=== PATIENT | female | born 1965 | race Caucasian/White ===

== ENCOUNTER 2020-08-18 08:28 | Emergency (ER) | payer OTHER, SELFPAY ==
[2020-08-18 08:45] VITALS: BP 119/57; PULSE 72; RESP 20; TEMP 36.4; O2SAT 100
--- NOTE | 2020-08-18 09:30 | ED.EYEPROB ---
HPI - Eye Problem General Chief complaint: Eye Problems Stated complaint: fb in left eye Time Seen by Provider: 08/18/20 09:32 Source: patient and RN notes reviewed Mode of arrival: ambulatory Limitations: no limitations History of Present Illness HPI Narrative: 54-year-old female who presents to [facility] care with complaints of foreign body sensation to her left eye which she noted yesterday evening after painting her ceiling. Patient states that she washed her left eye out with water but continues to have feelings of foreign body in her left eye. Visual acuity performed with right eye 20/40, left eye 20/50 with no corrective lenses worn. Patient states no sharp pain to her left eye, denies any photophobia, does have excessive tearing. No contact lens use. MD chief complaint: eye pain Onset description: sudden Duration: progressively worsening Location: left eye Eye Symptoms: burning and foreign body sensation Place: home Mechanism: chemical exposure and other (painting ceiling) Treatments Prior to Arrival: irrigated eye Related Data Home Medications Medication Instructions Recorded Confirmed albuterol sulfate [Ventolin HFA] 2 puff INHALATION QID PRN 08/18/20 08/18/20 dicyclomine 10 mg PO TID 08/18/20 08/18/20 escitalopram oxalate 10 mg PO DAILY 08/18/20 08/18/20 hydrocodone-acetaminophen 1 tablet PO Q6H PRN 08/18/20 08/18/20 Allergies Allergy/AdvReac Type Severity Reaction Status Date / Time cat dander Allergy Intermediate SOB, NASAL Verified 08/18/20 09:40 CONGESTION, SNEEZING horse dander Allergy Intermediate SOB, NASAL Verified 08/18/20 09:40 CONGESTION, SNEEZING Review of Systems Review of Systems: Narrative: CONSTITUTIONAL: Denies fever, chills, or sweats. EYES: Denies visual changes, redness, or discharge. excessive tearing to left eye with foreign body sensation, no acute sharp pain. ENT: Denies rhinorrhea, congestion, sore throat, or otalgia. CARDIOVASCULAR: Denies chest pain, palpitations, or edema. RESPIRATORY: Denies cough or dyspnea. GASTROINTESTINAL: Denies abdominal pain, nausea, vomiting, or diarrhea. GENITOURINARY: Denies dysuria or hematuria. SKIN: Denies rash or itching. MUSCULOSKELETAL: Denies back pain, joint pain, or myalgia. NEUROLOGIC: Denies headache, numbness, or weakness. PSYCHIATRIC: Denies anxiety or depression. All systems reviewed & are unremarkable except as noted in HPI and below PMFSH Past Medical History Medical History (Updated 08/18/20 @ 10:41 by Helena Roland NP) Allergy-induced asthma Shukla's esophagus Chronic back pain Surgical History Surgical History (Updated 08/18/20 @ 10:45 by Helena Roland NP) H/O shoulder surgery left History of carpal tunnel release right History of endometrial ablation History of fusion of cervical spine History of thumb surgery left History of tubal ligation History of weight loss surgery gastric sleve Hx of cholecystectomy Hx of tonsillectomy Social History Social History (Updated 08/18/20 @ 10:38 by Helena Roland NP) Smoking packs per day: 1 Smoking cigarettes per day: 20.0 Years smoked: 40 Smoking pack-years: 40.00 Smoking status: Current every day smoker Tobacco type: cigarettes Alcohol intake: unknown Substance use: unknown Living arrangements: with family Gender identity (if verbalized by the patient): Female Comments At time of signature, agree with nursing past medical, surgical, social history. There is no relevant family history pertinent to the presenting complaint Exam Narrative: Exam Narrative: GENERAL: Well-appearing, well-nourished, and in no acute distress. HEAD: Normocephalic, atraumatic. EYES: PERRLA and EOMI. visual acuity right 20/40 left 20/50 no sharp pain to left eye, foreign body sensation to left eye with tearing, see eye exam procedure. ENT: Nares clear, no rhinorrhea or epistaxis. Mucous membranes moist. NECK: Supple. no lymphadenopathy ANASTACIO
== END 2020-08-18 10:00 | disposition home or self-care (01) ==
PROVIDERS: Emergency Provider Registered Nurse
DX: S05.02XA Injury of conjunctiva and corneal abrasion without foreign body, left eye, initial encounter (principal); X58.XXXA Exposure to other specified factors, initial encounter; F17.210 Nicotine dependence, cigarettes, uncomplicated; K22.70 Barrett's esophagus without dysplasia; J45.909 Unspecified asthma, uncomplicated; Z98.84 Bariatric surgery status
CPT/HCPCS: 99213; A9270; G0463

== ENCOUNTER 2020-09-04 17:09 | Emergency (ER) | payer OTHER, SELFPAY ==
--- NOTE | ~2020-09-04 | XR_ITS ---
EXAMINATION: XR finger 3rd RT min 2V DATE: 09/04/2020 18:00 INDICATION: Right hand third digit injury. TECHNIQUE: 3 views of right hand third digit were obtained. COMPARISON: None. FINDINGS: Bone alignment is normal. There is mild osteoarthritis of first carpometacarpal joint. Ther e is a small calcification at radial aspect of third distal interphalangeal joint. There is soft tiss ue swelling of third proximal interphalangeal joint. IMPRESSION: 1. Small calcification at radial aspect of third distal interphalangeal joint, which may be a chip av ulsion fracture or a chronic finding. Reviewed, dictated and finalized at location A. ER HELPER IMPRESSION: 1. Small calcification at radial aspect of third distal interphalangeal joint, which may be a chip avulsion fracture or a chronic finding.
[2020-09-04 17:18] VITALS: BP 128/63; PULSE 79; RESP 14; TEMP 37.1; O2SAT 99
--- NOTE | 2020-09-04 17:39 | ED.GENADULT ---
HPI - General Adult General Chief complaint: Extremity Injury, Upper Stated complaint: right middle finger swollen/painful Time Seen by Provider: 09/04/20 17:39 Source: patient and RN notes reviewed Mode of arrival: ambulatory Limitations: no limitations History of Present Illness HPI narrative: 54-year-old female presents with complaints of RT 3rd (middle) finger pain for the past 6-8 weeks. Tonie says pain initially from unknown injury, today while cleaning jammed finger against the floor. Symptoms increased throughout the day. [place] with relief. Denies numbness or tingling. No weakness of finger. Denies immobility. Exacerbation is movement and palpation of finger. Relieving factor is rest. Dominant hand is RIGHT HAND. Denies break in skin or drainage. The patient reports she have not been diagnosed with COVID-19. The patient reports she is not waiting for the results of a COVID-19 lab test. The patient reports she do not have fever, chills, weakness, or fatigue. The patient reports she do not have a new or worsening cough or shortness of breath. Denies chest pain. The patient reports she do not have any rhinorrhea, congestion, sore throat, loss of taste, nausea, vomiting, abdominal pain, and diarrhea. Tolerating po intake well. Denies recent traveling. Denies concerns for COVID-19 or exposures been home with limited outdoor exposure except for essential household needs, work, and return home. At this time, patient is not suspected of having COVID-19. Some parts of this dictation were generated by voice recognition software and may contain typographical and/or grammatical inaccuracies. Related Data Home Medications Medication Instructions Recorded Confirmed albuterol sulfate [Ventolin HFA] 2 puff INHALATION QID PRN 08/18/20 09/04/20 escitalopram oxalate 10 mg PO DAILY 08/18/20 09/04/20 hydrocodone-acetaminophen 1 tablet PO Q6H PRN 08/18/20 09/04/20 omeprazole 40 mg PO DAILY 09/04/20 09/04/20 Allergies Allergy/AdvReac Type Severity Reaction Status Date / Time cat dander Allergy Intermediate SOB, NASAL Verified 09/04/20 17:32 CONGESTION, SNEEZING horse dander Allergy Intermediate SOB, NASAL Verified 09/04/20 17:32 CONGESTION, SNEEZING Review of Systems Review of Systems: Narrative: CONSTITUTIONAL: Denies fever, chills, sweats. EYES: Denies visual changes, redness, discharge. ENT: Denies rhinorrhea, congestion, sore throat, otalgia. CARDIOVASCULAR: Denies chest pain, palpitations, edema. RESPIRATORY: Denies dyspnea, wheezing, cough. GASTROINTESTINAL: Denies abdominal pain, nausea, vomiting, diarrhea. SKIN: Denies rash or itching. MUSCULOSKELETAL: Denies acute back pain or myalgia. Complains of RT 3rd (middle) finger with tenderness. NEUROLOGIC: Denies numbness or focal weakness. PSYCHIATRIC: Denies anxiety or depression. All systems reviewed & are unremarkable except as noted in HPI and below PMFSH Past Medical History Medical History Allergy-induced asthma Shukla's esophagus Chronic back pain Surgical History Surgical History H/O shoulder surgery left History of carpal tunnel release right History of endometrial ablation History of fusion of cervical spine History of thumb surgery left History of tubal ligation History of weight loss surgery gastric sleve Hx of cholecystectomy Hx of tonsillectomy Family History Family History (Updated 09/04/20 @ 18:00 by JOSEE Regalado) Father Acute myocardial infarction Mother Cerebrovascular accident Social History Social History (Updated 09/04/20 @ 18:01 by JOSEE Regalado) Smoking packs per day: 1 Smoking cigarettes per day: 20.0 Years smoked: 40 Smoking pack-years: 40.00 Smoking status: Current every day smoker Tobacco type: cigarettes Second
== END 2020-09-04 18:41 | disposition home or self-care (01) ==
PROVIDERS: Emergency Provider Nurse Practitioner Family
DX: S63.612A Unspecified sprain of right middle finger, initial encounter (principal); W22.8XXA Striking against or struck by other objects, initial encounter; F17.210 Nicotine dependence, cigarettes, uncomplicated; Z98.84 Bariatric surgery status; J45.990 Exercise induced bronchospasm; K22.70 Barrett's esophagus without dysplasia
CPT/HCPCS: 29130; 73140; 99213; G0463

== ENCOUNTER 2021-03-24 16:54 | Emergency (ER) | payer OTHER, SELFPAY ==
--- NOTE | ~2021-03-24 | XR_ITS ---
XR foot LT min 3V 03/24/2021 17:24 Indication: Left foot pain Procedure: 4 views left foot Comparison: No prior studies for comparison. Findings: Mild-moderate osteoarthritis first MTP joint. Lisfranc joint intact. No significant soft ti ssue abnormality. No foreign bodies. Small degenerative calcaneal enthesophytes. Impression: 1: No acute fracture. Reviewed, dictated and finalized at location A. Impression: 1: No acute fracture.
[2021-03-24 17:04] VITALS: BP 130/66; PULSE 74; RESP 16; TEMP 36.8; O2SAT 97
[2021-03-24 17:11] VITALS: BP 130/66; PULSE 74; RESP 16; TEMP 36.8; O2SAT 97
--- NOTE | 2021-03-24 17:43 | ED.LOWEXIN ---
HPI - Extremity Injury (Lower) General Chief Complaint: Extremity Injury, Lower Stated Complaint: Foot complaint Time Seen by Provider: 03/24/21 17:24 Source: patient and RN notes reviewed Mode of arrival: ambulatory Limitations: no limitations History of Present Illness HPI Narrative: Patient presents today complaining of left lateral foot pain x2 to 3 weeks. States she experienced pain when she stepped down from her camper. States pain continues to worsen and has been constant. She does report some tingling in her foot, but denies numbness. Currently rates her pain 6?9/10. Patient takes [place] chronically for her chronic back pain, but cannot take NSAIDs due to previous weight loss surgery. MD complaint: foot injury Related Data Home Medications Medication Instructions Recorded Confirmed escitalopram oxalate 10 mg PO DAILY 08/18/20 03/24/21 omeprazole 40 mg PO DAILY 09/04/20 03/24/21 hydrocodone-acetaminophen 1 tablet PO QID PRN 03/24/21 03/24/21 pantoprazole 40 mg PO DAILY 03/24/21 03/24/21 Allergies Allergy/AdvReac Type Severity Reaction Status Date / Time cat dander Allergy Intermediate SOB, NASAL Verified 03/24/21 17:09 CONGESTION, SNEEZING horse dander Allergy Intermediate SOB, NASAL Verified 03/24/21 17:09 CONGESTION, SNEEZING Review of Systems Review of Systems: Narrative: CONSTITUTIONAL: Denies body aches, fever, chills, or sweats. EYES: Denies visual changes, redness, or discharge. ENT: Denies rhinorrhea, congestion, sore throat, or otalgia. CARDIOVASCULAR: Denies chest pain, palpitations, or edema. RESPIRATORY: Denies cough or dyspnea. GASTROINTESTINAL: Denies abdominal pain, nausea, vomiting, or diarrhea. GENITOURINARY: Denies dysuria or hematuria. SKIN: Denies rash, itching, or wounds. MUSCULOSKELETAL: Denies back pain, or myalgia. + Left foot pain NEUROLOGIC: Denies headache, numbness, tingling, or weakness. PSYCH: Denies depression or anxiety. [facility] Past Medical History Medical History Allergy-induced asthma Shukla's esophagus Chronic back pain Surgical History Surgical History H/O shoulder surgery left History of carpal tunnel release right History of endometrial ablation History of fusion of cervical spine History of thumb surgery left History of tubal ligation History of weight loss surgery gastric sleve Hx of cholecystectomy Hx of tonsillectomy Family History Family History (Updated 09/04/20 @ 18:00 by JOSEE Regalado) Father Acute myocardial infarction Mother Cerebrovascular accident Social History Social History (Updated 09/04/20 @ 18:01 by JOSEE Regalado) Smoking packs per day: 1 Smoking cigarettes per day: 20.0 Years smoked: 40 Smoking pack-years: 40.00 Smoking status: Current every day smoker Tobacco type: cigarettes Second hand tobacco smoke exposure: Yes Alcohol intake: current Substance use: never Gender identity (if verbalized by the patient): Female Comments At time of signature, I have reviewed and agree with nursing past medical, surgical, social and family history unless otherwise noted. Please see nursing chart for further information. There is no relevant family history pertinent to the presenting complaint Exam Narrative: Exam Narrative: GENERAL: Well-appearing, well-nourished, and in no acute distress. HEAD: Normocephalic, atraumatic. EYES: EOMI. No redness or drainage. Conjunctivae normal. ENT: Mucous membranes pink and moist. NECK: Normal AROM. CHEST: No respiratory distress. EXTREMITIES: Left foot: Tenderness to the fifth metatarsal, fourth metatarsal, and fourth interspace. No edema noted. No erythema or ecchymosis noted. Distal sensation intact. Capillary refill normal. Pedal pulse normal. Full range of motion of all toes noted. N
== END 2021-03-24 18:00 | disposition home or self-care (01) ==
PROVIDERS: Emergency Provider Nurse Practitioner
DX: M79.672 Pain in left foot (principal); F17.210 Nicotine dependence, cigarettes, uncomplicated; K22.70 Barrett's esophagus without dysplasia
CPT/HCPCS: 73630; 99213; G0463

== ENCOUNTER 2021-07-13 13:15 | Outpatient (CLI) | payer OTHER, SELFPAY ==
--- NOTE | ~2021-07-13 | XR_ITS ---
XR foot LT min 3V DATE: 07/13/2021 13:29 INDICATION: Lateral left foot pain for 5 months. No injury. TECHNIQUE: 4 views COMPARISON: 03/24/2021 left foot FINDINGS: Mild plantar and posterior calcaneal enthesopathy. No fracture or dislocation, periosteal reaction or bone destruction. No erosive change. There is mild to moderate osteoarthritis at the second tarsometatarsal area IMPRESSION: Mild plantar and posterior calcaneal enthesopathy Mild osteoarthritis Reviewed, dictated and finalized at location A.
== END 2021-07-13 13:16 | disposition home or self-care (01) ==
LOC: ANHBWCIMG 13:15
PROVIDERS: Visit Provider Orthopaedic Surgery
DX: M79.672 Pain in left foot (principal); M77.32 Calcaneal spur, left foot; M19.072 Primary osteoarthritis, left ankle and foot
CPT/HCPCS: 73630

== ENCOUNTER 2022-07-28 11:10 | Emergency (ER) | payer OTHER, SELFPAY ==
[2022-07-28 11:17] VITALS: BP 134/65; PULSE 71; RESP 20; TEMP 36.4; O2SAT 99
--- NOTE | 2022-07-28 11:22 | ED.URI ---
HPI - URI/Sore Throat General Chief Complaint: Upper Respiratory Infection Stated Complaint: Chest Congestion/Cough Time Seen by Provider: 07/28/22 11:30 Source: patient, RN notes reviewed and old records reviewed Mode of arrival: ambulatory Limitations: no limitations History of Present Illness HPI Narrative: 56-year-old female who presents to [facility] care with complaints of COUGH, CONGESTION, SINUS CONGESTION WITH PRESSURE TO FOREHEAD AND FACE. Patient reports that she has had symptoms for the past 8 days with no improvement with use of her inhaler and Tylenol severe sinus OTC medication. Patient reports that she has been running a lower grade temp around 99F. Patient reports that she has some rib pain related to frequent coughing. Patient continues to smoke cigarettes daily has 1 pack/day times x43 years history. MD elicited complaint: cough, rhinorrhea, nasal congestion, sinus pain and other (wheezing) Pertinent past history: asthma and other (tobacco abuse) Onset (ago): day(s) (8) Pain scale (0-10): 6 Exacerbating factors: exertion and other (coughing) Treatments prior to arrival: other (Tylenol severe sinus and Albuterol) Related Data Home Medications Medication Instructions Recorded Confirmed omeprazole 40 mg capsule,delayed 40 mg PO DAILY 09/04/20 07/28/22 release hydrocodone 10 mg-acetaminophen 1 tablet PO QID PRN Pain 03/24/21 07/28/22 325 mg tablet cholecalciferol (vitamin D3) 125 125 mcg PO DAILY 07/14/21 07/28/22 mcg (5,000 unit) capsule cyclobenzaprine 10 mg tablet 10 mg PO TID PRN Muscle Spasm 07/14/21 07/28/22 vitamin B complex 1 tablet PO DAILY 07/14/21 07/28/22 albuterol sulfate 90 mcg/actuation 2 puff inhalation Q4-6H PRN 07/28/22 07/28/22 aerosol inhaler Shortness Of Breath Or Wheezing buspirone 15 mg tablet 15 mg PO BID 07/28/22 07/28/22 citalopram 40 mg tablet 40 mg PO DAILY 07/28/22 07/28/22 fluticasone 250 mcg-salmeterol 50 1 inh inhalation BID 07/28/22 07/28/22 mcg/dose blistr powdr for inhalation (Advair Diskus) Allergies Allergy/AdvReac Type Severity Reaction Status Date / Time cat dander Allergy Intermediate SOB, NASAL Verified 07/28/22 11:28 CONGESTION, SNEEZING horse dander Allergy Intermediate SOB, NASAL Verified 07/28/22 11:28 CONGESTION, SNEEZING Review of Systems Review of Systems: CONSTITUTIONAL: Low grade fever, chills, or sweats. EYES: Denies visual changes, redness, or discharge. ENT: Positive rhinorrhea, congestion, sore throat, no otalgia. CARDIOVASCULAR: Denies chest pain, palpitations, or edema.rib pain especially with coughing RESPIRATORY: Positive with cough or dyspnea with exertion. GASTROINTESTINAL: Denies abdominal pain, nausea, vomiting, or diarrhea. GENITOURINARY: Denies dysuria or hematuria. SKIN: Denies rash or itching. MUSCULOSKELETAL: Chronic back pain, joint pain, or myalgia. NEUROLOGIC: Positive frontal headache, no numbness, or weakness. PSYCHIATRIC: Positive anxiety or depression. All systems reviewed & are unremarkable except as noted in HPI and below PMFSH Past Medical History Medical History Abdominal pain Allergy-induced asthma Anxiety Arthritis Asthma Shukla's esophagus Bursitis of left foot Chronic back pain Claustrophobia Cough variant asthma Depression Obesity Peroneal tendinitis of left lower leg Skin cancer Surgical History Surgical History H/O shoulder surgery [place] [address] Brantley History of carpal tunnel release right [place] [address] Brantley History of endometrial ablation History of fusion of cervical spine [place] [address] Craig History of thumb surgery left History of tubal ligation History of weight loss surgery gastric sleve [place] [address] Lynn Hx of cholecystectomy 1994 Hx of tonsillectomy Family History Family History (Reviewed 07/28/22 @ 11:22 by Helena Roland, N
[2022-07-28] MEDS: ALBUTEROL SULFATE NEB 2.5 MG/3 ML INH INHALATION (11:45)
[2022-07-28] MEDS: IPRATROPIUM BR 0.02% INH SOLN 0.5 MG/2.5 ML VIAL INHALATION (11:45)
== END 2022-07-28 12:15 | disposition home or self-care (01) ==
PROVIDERS: Emergency Provider Registered Nurse
DX: J32.9 Chronic sinusitis, unspecified (principal); J45.901 Unspecified asthma with (acute) exacerbation; F17.210 Nicotine dependence, cigarettes, uncomplicated; M19.90 Unspecified osteoarthritis, unspecified site; K22.70 Barrett's esophagus without dysplasia; Z85.828 Personal history of other malignant neoplasm of skin; E66.9 Obesity, unspecified; Z68.39 Body mass index [BMI] 39.0-39.9, adult; Z98.84 Bariatric surgery status; F41.9 Anxiety disorder, unspecified; F32.A Depression, unspecified
CPT/HCPCS: 94640; 99213; G0463

== ENCOUNTER 2023-01-06 16:58 | Emergency (ER) | payer OTHER, SELFPAY ==
--- NOTE | ~2023-01-06 | XR_ITS ---
EXAMINATION: XR foot RT min 3V DATE: 01/06/2023 17:20 INDICATION: Right foot pain TECHNIQUE: Dorsoplantar, two oblique and lateral views of the right foot were obtained. COMPARISON: None. FINDINGS: 30 degrees hallux valgus. Bone alignment is otherwise normal. No fracture. Mild polyarticular osteoar thritis at the first metatarsophalangeal and a few of the tarsal metatarsal and interphalangeal joint s. Small plantar calcaneal spur. Soft tissues are unremarkable. IMPRESSION: 1. No acute osseous abnormality. 2. 30 degrees hallux valgus and mild polyarticular osteoarthritis in the mid and forefoot. Reviewed, dictated and finalized at location A. ING PRESS OPERATOR IMPRESSION: 1. No acute osseous abnormality. 2. 30 degrees hallux valgus and mild polyarticular osteoarthritis in the mid an d forefoot.
[2023-01-06 17:15] VITALS: BP 123/58; PULSE 66; RESP 20; TEMP 36.8; O2SAT 98
--- NOTE | 2023-01-06 17:23 | ED.LOWEXIN ---
HPI - Extremity Injury (Lower) General Stated Complaint: Right Foot Injury Time Seen by Provider: 01/06/23 17:26 Source: patient and RN notes reviewed Mode of arrival: ambulatory Limitations: no limitations History of Present Illness HPI Narrative: 57-year-old female presents with concern for right foot pain. Reports yesterday she stepped on a block causing pain to her foot. She reports today her dog stepped on her foot making the pain worse. She reports she has been elevating it. She artery takes NSAIDs daily. MD complaint: foot injury Related Data Home Medications Medication Instructions Recorded Confirmed omeprazole 40 mg capsule,delayed 40 mg PO DAILY 09/04/20 01/06/23 release hydrocodone 10 mg-acetaminophen 1 tablet PO QID PRN Pain 03/24/21 01/06/23 325 mg tablet albuterol sulfate 90 mcg/actuation 2 puff inhalation Q4-6H PRN 07/28/22 01/06/23 aerosol inhaler Shortness Of Breath Or Wheezing buspirone 15 mg tablet 15 mg PO BID 07/28/22 01/06/23 citalopram 40 mg tablet 40 mg PO DAILY 07/28/22 01/06/23 cholecalciferol (vitamin D3) 10 10 mcg PO DAILY 01/06/23 01/06/23 mcg (400 unit) capsule (Vitamin D3) multivitamin 1 tablet PO DAILY 01/06/23 01/06/23 naproxen sodium 220 mg capsule 220 mg PO DAILY 01/06/23 01/06/23 (Aleve) Allergies Allergy/AdvReac Type Severity Reaction Status Date / Time cat dander Allergy Intermediate SOB, NASAL Verified 01/06/23 17:01 CONGESTION, SNEEZING horse dander Allergy Intermediate SOB, NASAL Verified 01/06/23 17:01 CONGESTION, SNEEZING Review of Systems Review of Systems: CONSTITUTIONAL: Denies malaise, chills, sweats, or fever. SKIN: Denies rash or itching, open skin, laceration, abrasion, redness, warmth, swelling. MUSCULOSKELETAL: Reports right side pain NEUROLOGIC: Denies numbness, weakness All systems reviewed & are unremarkable except as noted in HPI and below PMFSH Past Medical History Medical History Abdominal pain Allergy-induced asthma Anxiety Arthritis Asthma Shukla's esophagus Bursitis of left foot Chronic back pain Claustrophobia Cough variant asthma Depression Obesity Peroneal tendinitis of left lower leg Skin cancer Surgical History Surgical History H/O shoulder surgery [place] [address] Brantley History of carpal tunnel release right [place] [address] Brantley History of endometrial ablation History of fusion of cervical spine [place] [address] Craig History of thumb surgery left History of tubal ligation History of weight loss surgery gastric sleve [place] [address] 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 There is no relevant family history pertinent to the presenting complaint Exam Narrative: GENERAL: Well-appearing, well-nourished, and in no acute distress. HEAD: Normocephalic, atraumatic. EYES: PERRLA, conjunctivae clear NECK: Supple. CHEST: Speaks in full sentences. No respiratory distress.
== END 2023-01-06 17:35 | disposition home or self-care (01) ==
PROVIDERS: Emergency Provider Nurse Practitioner
DX: M79.671 Pain in right foot (principal); F17.210 Nicotine dependence, cigarettes, uncomplicated; Z79.891 Long term (current) use of opiate analgesic; Z79.1 Long term (current) use of non-steroidal anti-inflammatories (NSAID); Z85.828 Personal history of other malignant neoplasm of skin
CPT/HCPCS: 73630; 99213; G0463

== ENCOUNTER 2023-03-21 17:48 | Emergency (ER) | payer OTHER, SELFPAY ==
--- NOTE | ~2023-03-21 | XR_ITS ---
EXAM: XR hip LT min 2V DATE: 03/21/2023 18:29 HISTORY: FELL ON LT HIP X4 MOS. AGO, STILL HAS PAIN. . COMPARISON: None available. FINDINGS: Normal mineralization. No fracture or dislocation. No lytic or blastic lesion. Mild left h ip osteoarthritis. Mild hip enthesopathy. No erosion or periosteal change. Soft tissues within normal limits. IMPRESSION: No acute osseous finding in the left hip. Reviewed, dictated and finalized at location K.
--- NOTE | 2023-03-21 17:53 | ED.EXTPRO ---
HPI - Extremity Problem General Chief complaint: Extremity Injury, Lower Stated complaint: left hip pain from fall Time Seen by Provider: 03/21/23 18:05 Source: patient and RN notes reviewed Mode of arrival: ambulatory Limitations: no limitations History of Present Illness HPI Narrative: 57-year-old female presents concern for left hip pain. She reports she fell 3 days ago on the hip, reports today she was ?messing around? and felt a pop in her hip and has since then had left hip pain shooting into her groin and down her left leg. She describes the pain is 10. She reports she takes pain medicine for chronic back pain which she has taken already today with no relief. She denies any back injury. She reports she does have a bruise on her hip. Related Data Home Medications Medication Instructions Recorded Confirmed omeprazole 40 mg capsule,delayed 40 mg PO DAILY 09/04/20 01/06/23 release hydrocodone 10 mg-acetaminophen 1 tablet PO QID PRN Pain 03/24/21 01/06/23 325 mg tablet albuterol sulfate 90 mcg/actuation 2 puff inhalation Q4-6H PRN 07/28/22 01/06/23 aerosol inhaler Shortness Of Breath Or Wheezing buspirone 15 mg tablet 15 mg PO BID 07/28/22 01/06/23 citalopram 40 mg tablet 40 mg PO DAILY 07/28/22 01/06/23 cholecalciferol (vitamin D3) 10 10 mcg PO DAILY 01/06/23 01/06/23 mcg (400 unit) capsule (Vitamin D3) multivitamin 1 tablet PO DAILY 01/06/23 01/06/23 naproxen sodium 220 mg capsule 220 mg PO DAILY 01/06/23 01/06/23 (Aleve) cefdinir 250 mg/5 mL oral mg 03/21/23 suspension cyclobenzaprine 10 mg tablet mg 03/21/23 fluorometholone acetate 0.1 % eye drp 03/21/23 drops,suspension (Flarex) methylprednisolone 4 mg tablets in mg 03/21/23 a dose pack Allergies Allergy/AdvReac Type Severity Reaction Status Date / Time cat dander Allergy Intermediate SOB, NASAL Verified 01/06/23 17:01 CONGESTION, SNEEZING horse dander Allergy Intermediate SOB, NASAL Verified 01/06/23 17:01 CONGESTION, SNEEZING Review of Systems Review of Systems: CONSTITUTIONAL: Denies malaise, chills, sweats, or fever. SKIN: Denies rash or itching, open skin, laceration, abrasion, redness, warmth, swelling. MUSCULOSKELETAL: Reports left hip pain NEUROLOGIC: Denies numbness, weakness All systems reviewed & are unremarkable except as noted in HPI and below PMFSH Past Medical History Medical History Abdominal pain Allergy-induced asthma Anxiety Arthritis Asthma Shukla's esophagus Bursitis of left foot Chronic back pain Claustrophobia Cough variant asthma Depression Obesity Peroneal tendinitis of left lower leg Skin cancer Surgical History Surgical History H/O shoulder surgery [place] [address] Brantley History of carpal tunnel release right [place] [address] Brantley History of endometrial ablation History of fusion of cervical spine [place] [address] Craig History of thumb surgery left History of tubal ligation History of weight loss surgery gastric sleve [place] [address] 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
[2023-03-21 17:54] VITALS: BP 118/70; PULSE 77; RESP 20; TEMP 36.3; O2SAT 100
== END 2023-03-21 18:50 | disposition home or self-care (01) ==
PROVIDERS: Emergency Provider Nurse Practitioner
DX: M25.552 Pain in left hip (principal); F17.210 Nicotine dependence, cigarettes, uncomplicated; M19.90 Unspecified osteoarthritis, unspecified site; J45.909 Unspecified asthma, uncomplicated; K22.70 Barrett's esophagus without dysplasia; E66.9 Obesity, unspecified; Z68.37 Body mass index [BMI] 37.0-37.9, adult; Z85.828 Personal history of other malignant neoplasm of skin; F41.9 Anxiety disorder, unspecified; F32.A Depression, unspecified
CPT/HCPCS: 73502; 99213; G0463

== ENCOUNTER → 2023-04-21 09:42 | Outpatient (CLI) | payer OTHER, SELFPAY ==
--- NOTE | ~2023-04-21 | CT_ITS ---
EXAMINATION: CT sinus wo con DATE: 04/21/2023 10:20 INDICATION: Chronic sinusitis TECHNIQUE: Computed tomography (CT) of the paranasal sinuses was performed without intravenous contra st. The dose-length product was 281.78 mGy-cm. Automated exposure control and iterative reconstructio n technique were employed. COMPARISON: None FINDINGS: There is mucosal thickening of the right maxillary sinus. There is associated mucoperiostea l reaction. There is mild mucosal thickening of the deep white sinuses. There is mild mucosal thicken ing of the sphenoid sinuses. There is leftward nasal septal deviation. No air-fluid levels. Mastoids are pneumatized. IMPRESSION: 1. Moderate chronic sinusitis, most advanced at the right maxillary sinus with associated mucoperiost eal reaction. Reviewed, dictated and finalized at location L. IMPRESSION: 1. Moderate chronic sinusitis, most advanced at the right maxillary sinus with associated mucoperiosteal reaction.
== END ==
PROVIDERS: PCP Otolaryngology; Visit Provider Otolaryngology
DX: J32.0 Chronic maxillary sinusitis (principal)
CPT/HCPCS: 70486

== ENCOUNTER 2023-06-14 04:16 | Day surgery (SDC) | payer OTHER, SELFPAY ==
[2023-06-03 15:20] VITALS: BMI 39.0
--- NOTE | 2023-06-03 15:21 | PC.NURSE ---
Report to the Outpatient Waiting Room, entrance under the green pavilion located off [facility], at time _0800_ on date _[id number]_. Planned Procedure Time: _1000_. Time changes happen often and if your time is changed the preop area will call you the afternoon before. - You and your visitor will be asked to self-screen and do not enter if you have any COVID symptoms. - A mask is optional within the hospital at this time. Patients may have clear liquids (water, carbonated beverages, clear teas, apple juice) until 3 hours prior to surgery with a maximum of 20 ounces. - No food from midnight until time of surgery Take the following medications with a SIP of water the morning of surgery: ___Citalopram, Buspirone, Pain pill if needed. DO NOT STOP ANY OF YOUR OTHER PRESCRIPTION MEDICATIONS PRIOR TO SURGERY ?EXCEPT THE FOLLOWING Medications to discontinue per physician ____Multivitamin and vitamin D3 Date to take last exzr__[id number] Please no make-up, nail bhutanese, hairspray, perfume, deodorant, or body powder the day of surgery. No jewelry (including any body piercings) or valuables the day of surgery, leave them at home. Please take a shower or bath the night before, or the morning of, surgery with an antibacterial soap. Wear comfortable, loose fitting clothing. - Jewelry must be removed prior to entering the operating room. Rings and piercings that are not removed may be cut off. - The hospital will not accept responsibility for valuables. - Please leave all valuables, including medications, at home the day of surgery. If you are going home after surgery, a licensed front end loader driver must drive you home. - NO public transportation without another adult if you receive anesthesia. - We recommend that an adult stay with you for 24 hours following discharge. - We also recommend that you do not drive, make important decision, drink alcoholic beverages, or take any drugs that were not prescribed by your health care provider for at least 24 hours after your discharge time. Follow any additional instructions given to you from your surgeon. If you or anyone in your household have experienced Covid symptoms in the past week, please notify your surgeon or the nurse liaison at the phone number below for possible testing. Telephone instructions given to _Patient__and asked if any additional questions and then verbalized understanding. Patient advised to call surgeon office or pre surgery nurse liaison [phone] if any additional questions.
--- NOTE | 2023-06-13 17:20 | PM.IMHP ---
H&P: HPI History of Present Illness Date/Time: 06/13/23 17:20 Chief Complaint: Vocal cord polyps worse voice chronic sinusitis septal deviation turbinate hypertrophy Narrative: planned procedure Review of Systems Review of Systems: All systems reviewed & are unremarkable except as noted in HPI and below PMFSH Past Medical History Medical History Abdominal pain Allergy-induced asthma Anxiety Arthritis Asthma Shukla's esophagus Bursitis of left foot Chronic back pain Claustrophobia Cough variant asthma Depression Obesity Peroneal tendinitis of left lower leg Skin cancer Surgical History Surgical History H/O shoulder surgery [place] [address] Brantley History of carpal tunnel release right in [address] Brantley History of endometrial ablation History of fusion of cervical spine in [address] Craig History of thumb surgery left History of tubal ligation History of weight loss surgery gastric sleve [place] [address] Lynn Hx of cholecystectomy 1994 Hx of tonsillectomy Family History Family History Father Acute myocardial infarction Hypertension Heart disease Mother Cerebrovascular accident Diabetes mellitus Hypertension Sibling Cerebrovascular accident Grandparent Diabetes mellitus Hypertension Cerebrovascular accident Other Arthritis HLD (hyperlipidemia) Social History Social History (Updated 04/14/23 @ 16:22 by Jami Flores CMA) Smoking packs per day: 1 Smoking cigarettes per day: 20.0 Years smoked: 43 Smoking pack-years: 43.00 Smoking status: Never smoker Tobacco type: cigarettes Second hand tobacco smoke exposure: Yes Alcohol intake: current Substance use: never Substance use type: does not use Lack of Transportation: No Lack of Food: Never True Current Housing: I Have Housing Concerned About Future Housing: No Difficulty Paying Gas/Electric Bills: No Difficulty Paying for Meds: No Currently Unemployed: No Education: Trade/Vocational Certificate Difficulty w/ Childcare or Family Care: No Living arrangements: with family 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 Gender identity (if verbalized by the patient): Female Spiritual care concerns: No Meds Home Medications and Allergies Home Medications Medication Instructions Recorded Confirmed Type omeprazole 40 mg capsule,delayed 40 mg PO DAILY 09/04/20 06/03/23 History release hydrocodone 10 mg-acetaminophen 1 tablet PO QID PRN Pain 03/24/21 06/03/23 History 325 mg tablet albuterol sulfate 90 mcg/actuation 2 puff inhalation Q4-6H PRN 07/28/22 06/03/23 History aerosol inhaler Shortness Of Breath Or Wheezing buspirone 15 mg tablet 15 mg PO BID 07/28/22 06/03/23 History citalopram 40 mg tablet 40 mg PO DAILY 07/28/22 06/03/23 History cholecalciferol (vitamin D3) 10 10 mcg PO DAILY 01/06/23 06/03/23 History mcg (400 unit) capsule (Vitamin D3) multivitamin 1 tablet PO DAILY 01/06/23 06/03/23 History naproxen sodium 220 mg capsule 220 mg PO DAILY 01/06/23 06/03/23 History (Aleve) cyclobenzaprine 10 mg tablet 10 mg PO BID-TID PRN Pain 03/21/23 06/03/23 History fluorometholone acetate 0.1 % eye 1 drp LEFT EYE HS 03/21/23 06/03/23 History drops,suspension (Flarex) fluticasone propionate 50 1 - 2 spray intranasal BID #16 mL 04/06/23 06/03/23 Rx mcg/actuation nasal spray,suspension (Flonase Allergy Relief) Allergies Allergy/AdvReac Type Severity Reaction Status Date / Time cat dander Allergy Intermediate SOB, NASAL Verified 06/03/23 15:10 CONGESTION, SNEEZING horse dander Allergy Intermediate SOB, NASAL Verified 06/03/23 15:10 CONGESTION, SNEEZING Exam Narrati
[2023-06-14] VITALS (8 sets, daily range): BP systolic 107–126; BP diastolic 52–74; PULSE 60–69; RESP 12–22; TEMP 36.3–36.6; O2SAT 92–99
--- NOTE | 2023-06-14 07:20 | WPDHPUPDATE1 ---
History and Physical Update Update Date/Time: 06/14/23 07:20 History and Physical has been reviewed, including an updated exam of the patient. There are NO changes in the patient's condition. Risks, benefits, and alternatives have been discussed and questions answered. Patient agrees to proceed with procedure.
[2023-06-14] MEDS: ACETAMINOPHEN 500 MG TABLET 1000 MG PO (11:17)
[2023-06-14] MEDS: LACTATED RINGERS 1,000 ML 30 ML IV CONT ×2 (11:20→13:49)
--- NOTE | 2023-06-14 11:21 | WPDANESEPPF ---
Anes - Initial Pre Proc Eval Procedure: Operation Date: 06/14/23 12:00 Proposed Procedures p Image Guided Bilateral Inferior Turbinectomy with Outfracture, Bilateral Maxillary Antrostomy without Tissue Removal - Butch Holloway MD s Endoscopic Septoplasty - Butch Holloway MD s Microdirect Laryngoscopy with Excision Vocal Cord Polyps - Butch Holloway MD Date/Time: 06/14/23 11:21 Surgeon: Butch Holloway MD Pre Op Diagnosis: Chr Sinusitis, Vocal Cord Polyps Patient Data Age: 57 Gender: F Height: 1.6 m Weight: 100 kg Allergies Allergy/AdvReac Type Severity Reaction Status Date / Time cat dander Allergy Intermediate SOB, NASAL Verified 06/03/23 15:10 CONGESTION, SNEEZING horse dander Allergy Intermediate SOB, NASAL Verified 06/03/23 15:10 CONGESTION, SNEEZING Home Medications Medication Instructions Recorded Confirmed Type omeprazole 40 mg capsule,delayed 40 mg PO DAILY 09/04/20 06/14/23 History release hydrocodone 10 mg-acetaminophen 1 tablet PO QID PRN Pain 03/24/21 06/14/23 History 325 mg tablet albuterol sulfate 90 mcg/actuation 2 puff inhalation Q4-6H PRN 07/28/22 06/14/23 History aerosol inhaler Shortness Of Breath Or Wheezing buspirone 15 mg tablet 15 mg PO BID 07/28/22 06/14/23 History citalopram 40 mg tablet 40 mg PO DAILY 07/28/22 06/14/23 History cholecalciferol (vitamin D3) 10 10 mcg PO DAILY 01/06/23 06/14/23 History mcg (400 unit) capsule (Vitamin D3) multivitamin 1 tablet PO DAILY 01/06/23 06/14/23 History naproxen sodium 220 mg capsule 220 mg PO DAILY 01/06/23 06/14/23 History (Aleve) cyclobenzaprine 10 mg tablet 10 mg PO BID-TID PRN Pain 03/21/23 06/03/23 History fluorometholone acetate 0.1 % eye 1 drp LEFT EYE HS 03/21/23 06/14/23 History drops,suspension (Flarex) fluticasone propionate 50 1 - 2 spray intranasal BID #16 mL 04/06/23 06/14/23 Rx mcg/actuation nasal spray,suspension (Flonase Allergy Relief) cetirizine 10 mg tablet (Zyrtec) 10 mg PO DAILY 06/14/23 06/14/23 History Patient hx anesthesia problems: none Family hx anesthesia problems: none Results Review: All pre-operative results and documents have been reviewed as part of the pre-operative evaluation. [facility] Past Medical History Medical History Abdominal pain Allergy-induced asthma Anxiety Arthritis Asthma Shukla's esophagus Bursitis of left foot Chronic back pain Claustrophobia Cough variant asthma Depression Obesity Peroneal tendinitis of left lower leg Skin cancer Surgical History Surgical History H/O shoulder surgery [place] [address] Brantley History of carpal tunnel release right in [address] Brantley History of endometrial ablation History of fusion of cervical spine in [address] Craig History of thumb surgery left History of tubal ligation History of weight loss surgery gastric sleve [place] [address] Lynn Hx of cholecystectomy 1994 Hx of tonsillectomy Family History Family History Father Acute myocardial infarction Hypertension Heart disease Mother Cerebrovascular accident Diabetes mellitus Hypertension Sibling Cerebrovascular accident Grandparent Diabetes mellitus Hypertension Cerebrovascular accident Other Arthritis HLD (hyperlipidemia) Social History Social History Smoking packs per day: 1 Smoking cigarettes per day: 20.0 Years smoked: 43 Smoking pack-years: 43.00 Smoking status: Never smoker Tobacco type: cigarettes Second hand tobacco smoke exposure: Yes Alcohol intake: current Substance use: never Substance use type: does not use Lack of Transportation: No Lack of Food: Never True Current Housing: I Have Housing Concerned About Future
--- NOTE | 2023-06-14 11:45 | WPDHPUPDATE1 ---
History and Physical Update Update Date/Time: 06/14/23 11:45 update, no sinus surgery/antrostomies, no outfracture
[2023-06-14] MEDS: ceFAZolin 2 GM/D5W 50 ML 2 GM/50 ML BAG IVPB (11:52)
[2023-06-14] MEDS: LIDO 1%/EPINEPHRINE 1:100,000 20 ML VIAL 5 ML INFILTRATE (12:12)
[2023-06-14] MEDS: OXYMETAZOLINE HCL 0.05% NAS 15 ML BTL (*BKC) 1 SPRAY NASAL (12:12)
[2023-06-14] MEDS: fentaNYL CITRATE INJ (*CRX) 100 MCG/2 ML VIAL 25 MCG IV PUSH ×4 (14:00→14:22)
--- NOTE | 2023-06-14 14:07 | P.OP_ITS ---
Procedure Note - Detailed Date of Procedure 06/14/23 Pre-op Diagnosis Chr Sinusitis, Vocal Cord PolypsHoarse voice, septal deviation, turbinate hypertrophy Post-op Diagnosis Same Procedure Performed endoscopic assisted septoplasty, bilateral inferior turbinate reduction, micro direct laryngoscopy with excision of vocal cord polyp Surgeon Butch Holloway MD Anesthesia General Indications see above Findings severe Jo edema suctioned out of both tear in the left-sided flap able to lay down properly. Perforations the bilateral septoplasty flaps non opposing good turbinate reduction septum much straighter. Description of Procedure Patient identified consent verified the preoperative holding area. Patient brought operating. Time-out performed. General anesthesia induced endotracheal tube secured. Patient prepped draped positioned procedure confirm 2nd time-out performed. Laryngoscope placed after maxillary tooth mouth guard placed over the dentition laryngoscope placed glottis brought into view severe bilateral Jo edema. Afrin-soaked pledgets placed against the cords for 5 minutes then removed superior base cuts made on the vocal folds and the rain Petronila edema gelatinous matrix suctioned out on the left side unfortunate there was a tear however I was able to lay the epithelium back down good reduction in the edema. Afrin-soaked pledgets placed for 5 minutes then removed. Laryngoscope moved taken out of suspension maxillary tooth mouth guard removed. This was done under by using the hawa microscope and laryngoscopic instruments. Afrin-soaked pledgets then placed in the nose and removed. 0 degree endoscope utilized 13 cc 1% lidocaine 1 1 how the left-sided epinephrine injected in bilateral septum bilateral turbinates turbinates reduced in a submucosal plane using microdebri tila turbinate blade. The heads were cauterize right entered. [place] incision made left-sided 7 Ukrainian suction utilized to raise a left nasal septal flap osteotome utilized to cross over nasal 7 Ukrainian suction utilized to raise right nasal septal flap deviated cartilage removed deflate osteotome Amrit burkett talk as she forceps Doron Santos forceps. No opposing perforations. [place] incision closed with 3 interrupted 5 0 fast gut sutures. [place] splints placed bilaterally sutured anteriorly using 3 0 mattress nylon suture. Total blood loss 20 cc. Patient tolerated the procedure well no complications. I was able I performed all dictated portions of procedure. Patient care the patient given Anesthesiology. Estimated Blood Loss 20 Drains No Packing No Pathology None sent Complications No immediate complications Condition Stable Disposition PACU [facility] Billing Surgery - Charge Forward: Surgery Billing
[2023-06-14] MEDS: oxyCODONE HCL (*CRX) 5 MG TAB IR PO (14:55)
== END 2023-06-14 15:55 | disposition home or self-care (01) ==
PROVIDERS: Visit Provider Otolaryngology
PROC: (CPT 30520; principal; 2023-06-14 12:00)
PROC: (CPT 30520; 2023-06-14 12:00)
PROC: 0CJS8ZZ Inspection of Larynx, Via Natural or Artificial Opening Endoscopic (ICD-10-PCS; CPT 30520; 2023-06-14 12:00)
DX: J38.1 Polyp of vocal cord and larynx (principal); J34.3 Hypertrophy of nasal turbinates; J34.2 Deviated nasal septum; J32.9 Chronic sinusitis, unspecified; Z79.51 Long term (current) use of inhaled steroids; F32.A Depression, unspecified; F41.9 Anxiety disorder, unspecified; Z98.84 Bariatric surgery status; E66.9 Obesity, unspecified; Z68.41 Body mass index [BMI] 40.0-44.9, adult
CPT/HCPCS: 30520; 30140; 31541; A9270; J0330; J0690; J1100; J2250; J2405; J2704; J3010; J7120

== ENCOUNTER 2023-09-06 00:34 | Day surgery (SDC) | payer OTHER, SELFPAY ==
[2023-08-30 13:04] VITALS: BMI 39.0
--- NOTE | 2023-08-30 13:09 | PC.NURSE ---
Report to the Outpatient Waiting Room, entrance under the green pavilion located off [facility], at time _1200_ on date _[id number]_. Planned Procedure Time: _1400_. Time changes happen often and if your time is changed the preop area will call you the afternoon before. - You and your visitor will be asked to self-screen and do not enter if you have any COVID symptoms. - A mask is optional within the hospital at this time. Patients may have clear liquids (water, carbonated beverages, clear teas, apple juice) until 3 hours prior to surgery with a maximum of 20 ounces. - No food from midnight until time of surgery Take the following medications with a SIP of water the morning of surgery: __Buspirone, Citalopram and if needed Hydrocodone. DO NOT STOP ANY OF YOUR OTHER PRESCRIPTION MEDICATIONS PRIOR TO SURGERY ?EXCEPT THE FOLLOWING Medications to discontinue per physician Multivitamin and Vit D3. Date to take last dose Please no make-up, nail uzbek, hairspray, perfume, deodorant, or body powder the day of surgery. No jewelry (including any body piercings) or valuables the day of surgery, leave them at home. Please take a shower or bath the night before, or the morning of, surgery with an antibacterial soap. Wear comfortable, loose fitting clothing. - Jewelry must be removed prior to entering the operating room. Rings and piercings that are not removed may be cut off. - The hospital will not accept responsibility for valuables. - Please leave all valuables, including medications, at home the day of surgery. If you are going home after surgery, a licensed taxi cab driver must drive you home. - NO public transportation without another adult if you receive anesthesia. - We recommend that an adult stay with you for 24 hours following discharge. - We also recommend that you do not drive, make important decision, drink alcoholic beverages, or take any drugs that were not prescribed by your health care provider for at least 24 hours after your discharge time. Follow any additional instructions given to you from your surgeon. If you or anyone in your household have experienced Covid symptoms in the past week, please notify your surgeon or the nurse liaison at the phone number below for possible testing. Telephone instructions given to _Kim__and asked if any additional questions and then verbalized understanding. Patient advised to call surgeon office or pre surgery nurse liaison [phone] if any additional questions.
--- NOTE | 2023-09-04 10:06 | PM.IMHP ---
H&P: HPI History of Present Illness Date/Time: 09/04/23 10:06 Chief Complaint: chronic sinusitis recurrent sinusitis Narrative: planned procedure Review of Systems Review of Systems: All systems reviewed & are unremarkable except as noted in HPI and below PMFSH Past Medical History Medical History Abdominal pain Allergy-induced asthma Anxiety Arthritis Asthma Shukla's esophagus Bursitis of left foot Chronic back pain Claustrophobia Cough variant asthma Depression Obesity Peroneal tendinitis of left lower leg Skin cancer Surgical History Surgical History H/O shoulder surgery [place] [address] Brantley History of carpal tunnel release right [place] [address] Brantley History of endometrial ablation History of fusion of cervical spine [place] [address] Craig History of thumb surgery left History of tubal ligation History of weight loss surgery gastric sleve [place] [address] Lynn Hx of cholecystectomy 1994 Hx of tonsillectomy Family History Family History Father Acute myocardial infarction Hypertension Heart disease Mother Cerebrovascular accident Diabetes mellitus Hypertension Sibling Cerebrovascular accident Grandparent Diabetes mellitus Hypertension Cerebrovascular accident Other Arthritis HLD (hyperlipidemia) Social History Social History Smoking packs per day: 0.5 Smoking cigarettes per day: 10.0 Years smoked: 40 Smoking pack-years: 20.00 Smoking status: Current every day smoker Tobacco type: cigarettes Second hand tobacco smoke exposure: Yes Alcohol intake: current Substance use: never Substance use type: does not use Lack of Transportation: No Lack of Food: Never True Current Housing: I Have Housing Concerned About Future Housing: No Difficulty Paying Gas/Electric Bills: No Difficulty Paying for Meds: No Currently Unemployed: No Education: Trade/Vocational Certificate Difficulty w/ Childcare or Family Care: No Living arrangements: with family 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 Gender identity (if verbalized by the patient): Female Spiritual care concerns: No Meds Home Medications and Allergies Home Medications Medication Instructions Recorded Confirmed Type omeprazole 40 mg capsule,delayed 40 mg PO DAILY 09/04/20 08/30/23 History release hydrocodone 10 mg-acetaminophen 1 tablet PO QID PRN Pain 03/24/21 08/30/23 History 325 mg tablet albuterol sulfate 90 mcg/actuation 2 puff inhalation Q4-6H PRN 07/28/22 08/30/23 History aerosol inhaler Shortness Of Breath Or Wheezing buspirone 15 mg tablet 15 mg PO BID 07/28/22 08/30/23 History citalopram 40 mg tablet 40 mg PO DAILY 07/28/22 08/30/23 History cholecalciferol (vitamin D3) 10 10 mcg PO DAILY 01/06/23 08/30/23 History mcg (400 unit) capsule (Vitamin D3) multivitamin 1 tablet PO DAILY 01/06/23 08/30/23 History naproxen sodium 220 mg capsule 220 mg PO DAILY 01/06/23 08/30/23 History (Aleve) cyclobenzaprine 10 mg tablet 10 mg PO BID-TID PRN Pain 03/21/23 08/30/23 History fluorometholone acetate 0.1 % eye 1 drp LEFT EYE HS 03/21/23 08/30/23 History drops,suspension (Flarex) doxycycline hyclate 100 mg capsule 100 mg PO Q12H 7 days #14 caps 09/04/23 09/04/23 Rx Allergies Allergy/AdvReac Type Severity Reaction Status Date / Time cat dander Allergy Intermediate SOB, NASAL Verified 08/30/23 13:01 CONGESTION, SNEEZING horse dander Allergy Intermediate SOB, NASAL Verified 08/30/23 13:01 CONGESTION, SNEEZING Exam Narrative: edematous right middle meati I scant purulence Assessment and Plan Assessment and plan (1
[2023-09-06] VITALS (9 sets, daily range): BP systolic 104–128; BP diastolic 52–69; PULSE 72–81; RESP 13–16; TEMP 36.6–36.7; O2SAT 95–100
--- NOTE | 2023-09-06 07:22 | WPDHPUPDATE1 ---
History and Physical Update Update Date/Time: 09/06/23 07:22 History and Physical has been reviewed, including an updated exam of the patient. There are NO changes in the patient's condition. Risks, benefits, and alternatives have been discussed and questions answered. Patient agrees to proceed with procedure.
--- NOTE | 2023-09-06 11:49 | ECG_ITS ---
Measurements Intervals [place] Rate: 73 P: 70 UT: 161 QRS: -50 QRSD: 90 T: 44 QT: 421 QTc: 466 Interpretive Statements SINUS RHYTHM LOW QRS VOLTAGE IN LIMB LEADS LEFT ANTERIOR FASCICULAR BLOCK MINIMAL Q WAVES- INFERIOR LEADS ABNORMAL ECG NO PREVIOUS ECG AVAILABLE FOR COMPARISON Electronically Signed On 09-06-2023 13:00:02 SPRAY II PAINTER by Wisam Cummings D.O.
[2023-09-06] MEDS: LACTATED RINGERS 1,000 ML 30 ML IV CONT (12:35)
[2023-09-06] MEDS: ACETAMINOPHEN 500 MG TABLET 1000 MG PO (12:59)
--- NOTE | 2023-09-06 14:07 | WPDANESEPPF ---
Anes - Initial Pre Proc Eval Procedure: Operation Date: 09/06/23 14:15 Proposed Procedures p Image Guided Right Sided Endoscopic Maxillary Antrostomy - Butch Holloway MD Date/Time: 09/06/23 14:07 Surgeon: Butch Holloway MD Pre Op Diagnosis: Chr Sinusitis, Acute Sinusitis Patient Data Age: 57 Gender: F Height: 1.6 m Weight: 102.5 kg Last Vital Signs Temp 36.7 C 09/06/23 12:09 Pulse 79 09/06/23 12:09 Resp 16 09/06/23 12:09 BP 118/69 09/06/23 12:09 Pulse Ox 96 09/06/23 12:09 O2 Del Method Room Air 09/06/23 12:09 Allergies Allergy/AdvReac Type Severity Reaction Status Date / Time cat dander Allergy Intermediate SOB, NASAL Verified 08/30/23 13:01 CONGESTION, SNEEZING horse dander Allergy Intermediate SOB, NASAL Verified 08/30/23 13:01 CONGESTION, SNEEZING Home Medications Medication Instructions Recorded Confirmed Type omeprazole 40 mg capsule,delayed 40 mg PO DAILY 09/04/20 08/30/23 History release hydrocodone 10 mg-acetaminophen 1 tablet PO QID PRN Pain 03/24/21 08/30/23 History 325 mg tablet albuterol sulfate 90 mcg/actuation 2 puff inhalation Q4-6H PRN 07/28/22 08/30/23 History aerosol inhaler Shortness Of Breath Or Wheezing buspirone 15 mg tablet 15 mg PO BID 07/28/22 08/30/23 History citalopram 40 mg tablet 40 mg PO DAILY 07/28/22 08/30/23 History cholecalciferol (vitamin D3) 10 10 mcg PO DAILY 01/06/23 08/30/23 History mcg (400 unit) capsule (Vitamin D3) multivitamin 1 tablet PO DAILY 01/06/23 08/30/23 History naproxen sodium 220 mg capsule 220 mg PO DAILY 01/06/23 08/30/23 History (Aleve) cyclobenzaprine 10 mg tablet 10 mg PO BID-TID PRN Pain 03/21/23 08/30/23 History fluorometholone acetate 0.1 % eye 1 drp LEFT EYE HS 03/21/23 08/30/23 History drops,suspension (Flarex) doxycycline hyclate 100 mg capsule 100 mg PO Q12H 7 days #14 caps 09/04/23 09/04/23 Rx Patient hx anesthesia problems: none Family hx anesthesia problems: none Results Review: All pre-operative results and documents have been reviewed as part of the pre-operative evaluation. [facility] Past Medical History Medical History Abdominal pain Allergy-induced asthma Anxiety Arthritis Asthma Shukla's esophagus Bursitis of left foot Chronic back pain Claustrophobia Cough variant asthma Depression Obesity Peroneal tendinitis of left lower leg Skin cancer Surgical History Surgical History H/O shoulder surgery [place] [address] Brantley History of carpal tunnel release right in [address] Brantley History of endometrial ablation History of fusion of cervical spine in [address] Craig History of thumb surgery left History of tubal ligation History of weight loss surgery gastric sleve [place] [address] Lynn Hx of cholecystectomy 1994 Hx of tonsillectomy Family History Family History Father Acute myocardial infarction Hypertension Heart disease Mother Cerebrovascular accident Diabetes mellitus Hypertension Sibling Cerebrovascular accident Grandparent Diabetes mellitus Hypertension Cerebrovascular accident Other Arthritis HLD (hyperlipidemia) Social History Social History Smoking packs per day: 0.5 Smoking cigarettes per day: 10.0 Years smoked: 40 Smoking pack-years: 20.00 Smoking status: Current every day smoker Tobacco type: cigarettes Second hand tobacco smoke exposure: Yes Alcohol intake: current Substance use: never Substance use type: does not use Lack of Transportation: No Lack of Food: Never True Current Housing: I Have Housing Concerned About Future Housing: No Difficulty Paying Gas/Electric Bills: No Difficulty Paying for Meds: No Currently
[2023-09-06] MEDS: ceFAZolin 2 GM/D5W 50 ML 2 GM/50 ML BAG IVPB (14:22)
[2023-09-06] MEDS: LIDO 1%/EPINEPHRINE 1:100,000 50 ML VIAL INFILTRATE (14:47)
[2023-09-06] MEDS: OXYMETAZOLINE HCL 0.05% NAS 15 ML BTL (*BKC) 1 SPRAY NASAL (14:47)
[2023-09-06] MEDS: fentaNYL CITRATE INJ (*CRX) 100 MCG/2 ML VIAL 25 MCG IV PUSH ×6 (15:41→16:03)
--- NOTE | 2023-09-06 16:09 | W.PM.PROC2 ---
Procedure Note - Detailed Date of Procedure 09/06/23 Pre-op Diagnosis Chr Sinusitis, Acute Sinusitis, recurrent sinusitis Post-op Diagnosis Same Procedure Performed Right image guided maxillary antrostomy endoscopic Surgeon Butch Holloway MD Anesthesia General Indications See above Findings Copious amounts of purulence within the right maxillary sinus Description of Procedure Patient identified consent verified preop. Patient brought operating room. Time-out performed. General anesthesia induced endotracheal tube secured. Patient prepped draped positioned procedure confirmed. Second time-out performed. Afrin-soaked pledgets placed for 5 minutes then removed. Image guidance initiated and confirmed. 0 degree endoscope utilized right middle turbinate medialized. Image guidance utilized. Double ball tip probe inserted straight through cut backbiter microdebrider as well as rad 60 microdebrider utilized to perform a wide maxillary antrostomy. Copious amounts of purulence located within the max. This was irrigated x5 with sterile normal saline. Afrin-soaked pledgets placed were placed. Bilateral nasal passages suction. Afrin-soaked pledgets removed. The Nova pack placed. Patient tolerated procedure well no complications blood loss 35 cc. I performed all dictated portions. Care the patient given anesthesia patient taken to PACU. Estimated Blood Loss -35.0 Drains No Packing Yes (Novapak) Pathology None sent Complications No immediate complications Condition Stable Disposition PACU [facility] Billing Surgery - Charge Forward: Surgery Billing
[2023-09-06] MEDS: oxyCODONE HCL (*CRX) 5 MG TAB IR PO (16:31)
== END 2023-09-06 17:32 | disposition home or self-care (01) ==
PROVIDERS: Visit Provider Otolaryngology
PROC: (CPT 31256; principal; 2023-09-06 14:15)
DX: J01.00 Acute maxillary sinusitis, unspecified (principal); J32.0 Chronic maxillary sinusitis; J45.909 Unspecified asthma, uncomplicated; M54.9 Dorsalgia, unspecified; G89.29 Other chronic pain; F32.A Depression, unspecified; E66.01 Morbid (severe) obesity due to excess calories; Z68.41 Body mass index [BMI] 40.0-44.9, adult; Z98.84 Bariatric surgery status; F17.210 Nicotine dependence, cigarettes, uncomplicated; Z79.51 Long term (current) use of inhaled steroids; Z79.891 Long term (current) use of opiate analgesic; Z98.1 Arthrodesis status
CPT/HCPCS: 31256; 61782; 93005; A9270; J0330; J0690; J1100; J1165; J2250; J2371; J2405; J2704; J3010; J7030; J7120

== ENCOUNTER 2023-10-14 15:25 | Emergency (ER) | payer OTHER, SELFPAY ==
[2023-10-14 15:34] VITALS: BP 101/66; PULSE 78; RESP 20; TEMP 36.4; O2SAT 95
--- NOTE | 2023-10-14 16:19 | ED.GENADULT ---
HPI - General Adult General Chief complaint: Upper Respiratory Infection Stated complaint: Cough/Headache Source: patient, RN notes reviewed and old records reviewed Mode of arrival: ambulatory Limitations: no limitations History of Present Illness HPI narrative: 50 year female presents to [facility] with complaint of cough, congestion for 2 days. Patient states came today because daughter and grandson tested positive for COVID yesterday. Patient denies chest pain, fever, myalgia, headache, vomiting. MD complaint: Cough/congestion Onset (ago): day(s) (2) Related Data Home Medications Medication Instructions Recorded Confirmed omeprazole 40 mg capsule,delayed 40 mg PO DAILY 09/04/20 10/14/23 release hydrocodone 10 mg-acetaminophen 1 tablet PO QID PRN Pain 03/24/21 10/14/23 325 mg tablet buspirone 15 mg tablet 15 mg PO BID 07/28/22 10/14/23 citalopram 40 mg tablet 40 mg PO DAILY 07/28/22 10/14/23 cholecalciferol (vitamin D3) 10 10 mcg PO DAILY 01/06/23 10/14/23 mcg (400 unit) capsule (Vitamin D3) multivitamin 1 tablet PO DAILY 01/06/23 10/14/23 naproxen sodium 220 mg capsule 220 mg PO DAILY 01/06/23 10/14/23 (Aleve) fluorometholone acetate 0.1 % eye 1 drp LEFT EYE HS 03/21/23 10/14/23 drops,suspension (Flarex) fluorometholone 0.1 % eye 1 drp LEFT EYE DAILY 10/14/23 10/14/23 drops,suspension gabapentin 100 mg capsule 100 mg PO TID 10/14/23 10/14/23 Allergies Allergy/AdvReac Type Severity Reaction Status Date / Time cat dander Allergy Intermediate SOB, NASAL Verified 10/14/23 15:53 CONGESTION, SNEEZING horse dander Allergy Intermediate SOB, NASAL Verified 10/14/23 15:53 CONGESTION, SNEEZING Review of Systems Constitutional: Constitutional: Reports no additional constitutional complaints, Denies body ache(s), Denies chills, Denies fatigue, Denies fever(s) and Denies headache(s) Eyes: Eyes: Reports no additional eye complaints and Denies blurry vision ENT: Reports as per HPI, Denies vertigo, Denies dizziness, Denies ear discharge, Denies otalgia, Denies facial pain, Denies headache(s), Reports nasal congestion, Reports nasal discharge, Denies sinus pain, Reports sinus pressure and Denies sore throat Cardiovascular: Cardiovascular: Reports no additional cardiovascular complaints, Denies chest pain, Denies chest pain at rest, Denies rapid heart rate and Denies dyspnea Respiratory: Respiratory: Reports as per HPI, Reports chest congestion, Reports cough, Denies pain on inspiration, Denies pain with cough and Denies dyspnea Gastrointestinal: Gastrointestinal: Denies abdominal pain, Denies diarrhea, Denies nausea and Denies vomiting Integumentary/Breasts: Skin/Breast: Denies rash Neurologic: Reports system reviewed and no additional complaints, except as documented, Denies vertigo, Denies dizziness and Denies headache(s) Endocrine: Endocrine: Denies fatigue [facility] Past Medical History Medical History Abdominal pain Allergy-induced asthma Anxiety Arthritis Asthma Shukla's esophagus Bursitis of left foot Chronic back pain Claustrophobia Cough variant asthma Depression Obesity Peroneal tendinitis of left lower leg Skin cancer Surgical History Surgical History H/O shoulder surgery [place] [address] Brantley History of carpal tunnel release right [place] [address] Brantley History of endometrial ablation History of fusion of cervical spine in [address] Craig History of thumb surgery left History of tubal ligation History of weight loss surgery gastric sleve [place] [address] Lynn Hx of cholecystectomy 1994 Hx of tonsillectomy Family History Family History Father Acute myocardial infarction Hypertension Heart disease Mother Cerebrovascular accident Diabetes mellitus
== END 2023-10-14 16:27 | disposition home or self-care (01) ==
PROVIDERS: Emergency Provider Registered Nurse
DX: J06.9 Acute upper respiratory infection, unspecified (principal); Z20.822 Contact with and (suspected) exposure to COVID-19; F17.210 Nicotine dependence, cigarettes, uncomplicated; J45.909 Unspecified asthma, uncomplicated; K22.70 Barrett's esophagus without dysplasia; E66.9 Obesity, unspecified; Z68.41 Body mass index [BMI] 40.0-44.9, adult; F41.9 Anxiety disorder, unspecified; F32.A Depression, unspecified; Z85.828 Personal history of other malignant neoplasm of skin; Z98.84 Bariatric surgery status
CPT/HCPCS: 87426; 87804; 99213; C9803; G0463

== ENCOUNTER 2024-01-26 09:53 | Emergency (ER) | payer OTHER, SELFPAY ==
[2024-01-26 10:00] VITALS: BP 122/59; PULSE 80; RESP 16; TEMP 36.7; O2SAT 99
--- NOTE | 2024-01-26 10:27 | ED.URI ---
HPI - URI/Sore Throat General Chief Complaint: Upper Respiratory Infection Stated Complaint: throat Time Seen by Provider: 01/26/24 10:20 Source: patient and RN notes reviewed Mode of arrival: ambulatory Limitations: no limitations History of Present Illness HPI Narrative: Patient presents today with a 2 day history of sore throat with mild right ear pain. Denies any additional symptoms to include cough, congestion, fever, rhinorrhea. She currently rates her pain 1-2/10. She takes naproxen daily for pain. Related Data Home Medications Medication Instructions Recorded Confirmed omeprazole 40 mg capsule,delayed 40 mg PO DAILY 09/04/20 11/10/23 release hydrocodone 10 mg-acetaminophen 1 tablet PO QID PRN Pain 03/24/21 11/10/23 325 mg tablet buspirone 15 mg tablet 15 mg PO BID 07/28/22 11/10/23 citalopram 40 mg tablet 40 mg PO DAILY 07/28/22 11/10/23 cholecalciferol (vitamin D3) 10 10 mcg PO DAILY 01/06/23 11/10/23 mcg (400 unit) capsule (Vitamin D3) multivitamin 1 tablet PO DAILY 01/06/23 11/10/23 naproxen sodium 220 mg capsule 220 mg PO DAILY 01/06/23 11/10/23 (Aleve) fluorometholone acetate 0.1 % eye 1 drp LEFT EYE HS 03/21/23 11/10/23 drops,suspension (Flarex) fluorometholone 0.1 % eye 1 drp LEFT EYE DAILY 10/14/23 11/10/23 drops,suspension gabapentin 100 mg capsule 100 mg PO TID 10/14/23 11/10/23 Allergies Allergy/AdvReac Type Severity Reaction Status Date / Time cat dander Allergy Intermediate SOB, NASAL Verified 01/26/24 10:08 CONGESTION, SNEEZING horse dander Allergy Intermediate SOB, NASAL Verified 01/26/24 10:08 CONGESTION, SNEEZING Review of Systems Review of Systems: CONSTITUTIONAL: Denies body aches, fever, chills, or sweats. EYES: Denies visual changes, redness, or discharge. ENT: Denies rhinorrhea, congestion. + sore throat, right ear pain CARDIOVASCULAR: Denies chest pain, palpitations, or edema. RESPIRATORY: Denies cough or dyspnea. GASTROINTESTINAL: Denies abdominal pain, nausea, vomiting, or diarrhea. GENITOURINARY: Denies dysuria or hematuria. SKIN: Denies rash, itching, or wounds. MUSCULOSKELETAL: Denies back pain, joint pain, or myalgia. NEUROLOGIC: Denies headache, numbness, tingling, or weakness. PSYCH: Denies depression or anxiety. [facility] Past Medical History Medical History Abdominal pain Allergy-induced asthma Anxiety Arthritis Asthma Shukla's esophagus Bursitis of left foot Chronic back pain Claustrophobia Cough variant asthma Depression Obesity Peroneal tendinitis of left lower leg Skin cancer Surgical History Surgical History H/O shoulder surgery [place] [address] Brantley History of carpal tunnel release right [place] [address] Brantley History of endometrial ablation History of fusion of cervical spine in [address] Craig History of thumb surgery left History of tubal ligation History of weight loss surgery gastric sleve [place] [address] Lynn Hx of cholecystectomy 1994 Hx of tonsillectomy Family History Family History Father Acute myocardial infarction Hypertension Heart disease Mother Cerebrovascular accident Diabetes mellitus Hypertension Sibling Cerebrovascular accident Grandparent Diabetes mellitus Hypertension Cerebrovascular accident Other Arthritis HLD (hyperlipidemia) Social History Social History Smoking packs per day: 0.5 Smoking cigarettes per day: 10.0 Years smoked: 40 Smoking pack-years: 20.00 Smoking status: Current every day smoker Tobacco type: cigarettes Second hand tobacco smoke exposure: Yes Alcohol intake: current Substance use: never Substance use type: does not use Lack of Transportation: N
== END 2024-01-26 10:34 | disposition home or self-care (01) ==
PROVIDERS: Emergency Provider Nurse Practitioner; PCP Family Medicine
DX: J02.9 Acute pharyngitis, unspecified (principal); F17.210 Nicotine dependence, cigarettes, uncomplicated; J45.909 Unspecified asthma, uncomplicated; K22.70 Barrett's esophagus without dysplasia; E66.9 Obesity, unspecified; Z68.39 Body mass index [BMI] 39.0-39.9, adult; Z98.84 Bariatric surgery status; Z85.828 Personal history of other malignant neoplasm of skin
CPT/HCPCS: 87081; 87880; 99213; G0463

== ENCOUNTER 2025-03-28 14:21 | Emergency (ER) | payer OTHER, SELFPAY ==
--- NOTE | ~2025-03-28 | XR_ITS ---
EXAMINATION: XR ribs BI 3V w CXR 2V DATE: 03/28/2025 15:30 INDICATION: Rib pain post fall TECHNIQUE: PA and lateral views of the chest and 3 views of the left ribs and 3 views of the right ri bs were obtained. COMPARISON: None FINDINGS: No rib fractures identified. Calcified nodules at the right lung base consistent with old granulomato us disease. No other airspace opacities, pulmonary edema, pleural effusion or pneumothorax. Cardiomed iastinal silhouette is normal. Coarse cervical anterior spinal fusion with anterior plate and screw f ixation. Mild to moderate thoracic spondylosis with bridging osteophytes at multiple levels consisten t with diffuse idiopathic skeletal hyperostosis (DISH). Cholecystectomy clips in right upper quadrant . IMPRESSION: 1. No rib fracture or acute cardiopulmonary disease. Reviewed, dictated and finalized at location A.
--- NOTE | ~2025-03-28 | XR_ITS ---
XR shoulder RT min 2V Ordering provider: Zuly Bunch APRN History: . pain one week fall . Comparison: None. FINDINGS: BONES: No acute fracture or dislocation. Degenerative changes seen in the area of the greater tuberos ity. JOINT SPACES: The acromioclavicular joint shows mild osteoarthritic changes.. The glenohumeral joint is normal. SOFT TISSUES: Normal. IMPRESSION: No acute osseous abnormality right shoulder. Mild osteoarthritic changes. Reviewed, dictated and finalized at location A.
[2025-03-28 14:23] VITALS: BP 134/69; PULSE 85; RESP 16; TEMP 36.6; O2SAT 96
--- OUTSIDE RECORDS SUMMARY | 2025-03-28 14:25 | XMS_ITS | Clinical Summary ---
Author Organization [facility] Address [address] [address] Phone Care Team Providers Care Wheelchair Van Operator First Responder Name Role Phone Zuly Connor APRN, DEPUTY COUNTY COUNSEL Primary Care Provider Unavailable Allergies No known active allergies Medications cyclobenzaprine (FLEXERIL) 10 MG Tablet 1 Tab 3 times daily. 1 5 Active Cyanocobalamin (VITAMIN B 12 PO) Take 1 Tab by mouth. Active albuterol (PROVENTIL HFA, VENTOLIN HFA) 108 (90 BASE) MCG/ACT Aerosol Solution take 2 Puffs by inhalation every 4 hours as needed for Wheezing. Reported on 03/15/2017 Active albuterol (PROAIR HFA) 108 (90 BASE) MCG/ACT Aerosol Solution take 2 Puffs by inhalation every 4 hours as needed for Wheezing. 8.5 g 6 7 Active omeprazole (PRILOSEC) 40 MG CAPSULE DELAYED RELEASE TAKE 1 CAPSULE TWICE DAILY 60 Cap 6 7 Active HYDROcodone-sarina taminophen (NORCO) 10-325 MG Tablet TAKE 1 TABLET BY MOUTH EVERY 6 HOURS NEEDED 0 7 Active Active Problems Problem Noted Date Diagnosed Date Adjustment disorder with mix ed disturbance of emotions and conduct 11/28/2018 Screening for colon cancer 03/02/2017 Lumbar spinal stenosis 07/30/2016 Hip pain, right 01/20/2016 Chronic pain syndrome 12/19/2015 Undifferentiated somatoform disorder 12/19/2015 Back pain 09/30/2015 GERD (gastroesophageal reflux disease) 5 Depressed 09/30/2015 Anxiety 09/30/2015 Tobacco abuse 09/30/2015 Mild persistent asthma without complication 10/2014 Immunizations Immunization Administration Dates Next Due Hepatitis B Vaccine 05/28/2011 Influenza Vaccine greater than 3 yrs 08/09/2014 Influenza Vaccine, Quadrivalent, PF 10/13/2017,1 08/07/2016 Pneumococcal Vaccine Adult - 23 Valent 7 Pneumococcal Vaccine, Unspecified Formulation TB Skin Test 08/28/2014 Family History Medical History Relation Name Comments Heart Attack Father High Cholesterol Father Congestive Heart Failure Mother Diabetes Mother High Cholesterol Mother Hypertension Mother Stroke Mother Relation Name Status Comments Father Mother Social History Tobacco Use Types Packs/Day Years Used Date Smoking Tobacco: Heavy Smoker Cigarettes 1 46.7 Started: 07/26/1978 Smokeless Tobacco: Never Tobacco Cessation:Ready to Q uit: No; Counseling Given: Yes Alcohol Use Standard Drinks/Week Comments Yes 1 (1 standard drink = 0.6 oz pur e alcohol) occasionaly Dacarie 1 Sexually Active Control Partners Comments Yes Male Comments No Sex and Gender Information Value Date Recorded Sex Assigned at Not on file Legal Sex Female 7:46 PM CDT Gender Identity Not on file Sexual Orientation Not on file Last Filed Vital Signs Vital Sign Reading Time Taken Comments Blood Pressure 122/68 10/13/2017 8:15 AM HARNESSMAKER APPRENTICE Pulse 78 10/13/2017 8:15 AM HARNESSMAKER APPRENTICE Temperature 36.7 C (98 F) 10/13/2017 8:15 AM HARNESSMAKER APPRENTICE Respiratory Rate 20 06/03/2017 2:10 PM CDT Oxygen Saturation 98% 10/13/2017 8:15 AM HARNESSMAKER APPRENTICE Inhaled Oxygen Concentration - - Weight 114.8 kg (253 lb) 10/13/2017 8:15 AM HARNESSMAKER APPRENTICE Height 160 cm (5' 3) 10/13/2017 8:15 AM HARNESSMAKER APPRENTICE Body Mass Index 44.82 10/13/2017 8:15 AM HARNESSMAKER APPRENTICE Plan of Treatment Health Maintenance Due Date Last Done Comments Hepatitis C Virus (HCV) Screening 1965 TdaP Immunization 1965 Hepatitis B Immunization (2 of 3 - 19+ 3-dose series) 06/25/2011 05/28/2011 Cologuard 2015 Immunochemical Fecal Occult Blood 2015 Zoster Immunization (1 of 2) 2015 Pneumococcal Immunization (5 0+ years) (2 of 2 - PCV) 10/13/2018 10/13/2017, 01/29/2010 Influenza Immunization (#1) 07/01/202409/30, 08/07/2015, 08/09/2014 SARS-COV-2 Immunization ( season) 2024 09/25/2021, 01/19/2021, 12/18/2020 Colonoscopy 07/07/2027 07/07/2017 Colorectal Cancer Screening 07/07/2027 Respiratory Syncytial Virus (RSV) Immunization (Adult) (1 - 1-dose 75+ series) 2040 07/07/2017 Mammogram Discontinued 09/09/2016 Pneumococcal Immunization Combined Discontinued 10/13/2017, 01/29/2010 Meningococcal Immunization (ACWY) Aged Out No longer eligible based on patient's age to complete this topic Rotavirus Immunization Aged Out No lo nger eligible based on patient's age to complete this topic Procedures Procedure Name Priority Date/Time Associated Diagnosis Comments COLONOSCOPY Routine 07/07/2017 REILLY SCREENING BILATERAL DIGI IVAN W CAD Routine 09/09/2016 from Last 3 Months or Most Recently Relevant to Health Maintenance Results * HM COLONOSCOPY (07/07/2017) Wu Vela MD PROCEDURE/MINOR TRAVIS GICAL ORDERABLES Final Result * REILLY SCREENING BILATERAL DIGITAL W CAD (09/09/2016) Anatomical Region Laterality Modality breast Bilateral Other Malika Mccullough MECHANIC CHIEF, DEPUTY COUNTY COUNSEL IMG MAMMO ORDERABLES Fi nal Result from Last 3 Months or Most Recently Relevant to Health Maintenance Insurance [id number] Care Teams Wheelchair Van Operator First Responder Relationship Specialty Start Date End Date Zuly Connor, MECHANIC CHIEF, DEPUTY COUNTY COUNSEL PCP - General Obstetrics & Gynecology 11/24/18
--- OUTSIDE RECORDS SUMMARY | 2025-03-28 14:25 | XMS_ITS ---
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 Assessment & Plan (12/14/2024 10:20 AM WAREHOUSE TECHNICIAN): Doxycycline twice daily for at least 2 weeks, may continue for 3 weeks Diflucan if needed 64 ounces of caffeine free and soda free fluid daily Consider Allergy and Immunology if no improvement in 6 weeks Mass of tongue 12/03/2024 Assessment & Plan (12/03/2024 11:29 AM WAREHOUSE TECHNICIAN): Direct laryngoscopy with Biopsy of Right base of tongue mass and left true vocal fold mass Risks and complications discussed including anesthesia, bleeding, infection, injury to lips, teeth, tongue and gums, injury to larynx and surrounding structures, benign versus malignant pathology, need for further treatment. All questions were answered and patient agreed to proceed. 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 All questions were answered and patient agreed to proceed. Chest pain, unspecified type 10/27/2024 Chest pain 10/27/2024 Knee effusion, left 09/16/2024 Sprain of left knee 09/16/2024 Shoulder pain 08/14/2024 Encounter for screening colonoscopy 12/07/2023 Personal history of colonic polyps 12/07/2023 Cigarette nicotine dependence without complicati on 03/15/2023 Assessment & Plan (05/16/2023 10:35 AM CDT): Patient aware of risks of tobacco use up to and including Patient does not have interest in quitting at this time Recommend smoking cessation Assessment & Plan (03/16/2023 10:00 AM CDT): Advised patient to quit smoking. Rhinosinusitis 01/20/2023 Assessment & Plan (05/17/2023 7:59 AM CDT): -chronic, not at goal -Patient is scheduled for sinus surgery with Dr. Holloway ENT at [facility] on 06/14/23. Assessment & Plan (03/16/2023 10:00 AM CDT): Rxs given, increase fluids, rest. Notify our office of no improvement. Assessment & Plan (01/20/2023 3:43 PM CDT): Recommend fluids, rest, humidification if needed. She was instructed to call back if symptoms do not improved in a week, or if worsening ones arise. Education provided. Acute Likely viral flonase bid decongestion daily Saline rinses daily Tylenol for pain max of acetaminophen in a day is 4000. F/u in 1 week if no improvement will consider amoxicillin COVID-19 11/11/2022 Assessment & Plan (11/11/2022 7:51 AM WAREHOUSE TECHNICIAN): -patient tested positive - patient was using her albuterol inhaler more often, but is not needing it as frequently now -reports she is feeling better - advised patient to continue wearing mask and quarantining for the next 3 days SOB (shortness of breath) 11/04/2022 Assessment & Plan (11/04/2022 2:56 PM WAREHOUSE TECHNICIAN): worsening Patient is at increased risk for COVID. COVID swab in office was negative but likely a false negative. Sent off to lab. Will start paxlovid given patient is a high risk and at home test was positive(pt showed results of test. Instructed to read the package PaxloVID fact sheet before starting medication Instructed to take albuterol scheduled every 4-6 hours for the wheezing. Told patient to have low threshold to going to the ER for the worsening shortness of breath because she is high risk. guafenesin to help with mucus Sleep in prone position to help with breathing She verbalized understanding. Arthritis of carpometacarpal (CMC) joint of left thumb 12/25/2021 Carpal tunnel syndrome on left 12/25/2021 Ganglion cyst of volar aspect of left wrist 12/02 Chronic allergic rhinitis 12/22/2021 Assessment & Plan (11/11/2022 7:12 AM WAREHOUSE TECHNICIAN): HPI: Condition is stable A&P: Discussed environmental controls No smoking around patient, no animals in bedroom, keep windows closed, no hanging clothes on the line Take zyrtec/claritin/jarrod in the am Saline rinse in the am Flonase 1 sprays each nostril, aim away from cartilage, spray once-baby sniff, switch to the other nostril and repeat. Saline rinse about 15 min before bed Flonase 1 sprays each nostril, aim away from cartilage, spray once-baby sniff, switch to the other nostril and repeat. If working or playing outside, may need to do saline rinses when coming in and change clothes right away Recommend staying on the above treatment from the beginning of December to Come off of meds if possible during the summer Then restart on meds mid to late May until Come off of meds if possible during the winter Assessment & Plan (12/22/2021 8:23 AM WAREHOUSE TECHNICIAN): HPI: Condition is not at/near goal A&P: Discussed environmental controls No smoking around patient, no animals in bedroom, keep windows closed, no hanging clothes on the line Take zyrtec/claritin/jarrod in the am Saline rinse in the am Flonase 1 sprays each nostril, aim away from cartilage, spray once-baby sniff, switch to the other nostril and repeat. Saline rinse about 15 min before bed Flonase 1 sprays each nostril, aim away from cartilage, spray once-baby sniff, switch to the other nostril and repeat. If working or playing outside, may need to do saline rinses when coming in and change clothes right away Recommend staying on the above treatment from the beginning of December to Come off of meds if possible during the summer Then restart on meds mid to late May until Come off of meds if possible during the winter DDD (degenerative disc disease), lumbar 06/17/20 21 Insomnia secondary to chronic pain 11/10/2020 Shukla's esophagus with dysplasia 11/07/2020 Overview (11/07/2020): Added automatically from request for surgery [id number] History of Shukla's esophagus 07/28/2020 Overview (07/28/2020): Added automatically from request for surgery [id number] Gastroesophageal reflux disease 07/28/2020 Overview (07/28/2020): Added automatically from request for surgery [id number] Assessment & Plan (05/16/2023 10:35 AM CDT): HPI: Condition is stable Continue on current meds omeprazole 40 mg daily, encouraged healthy diet and exercise Avoid trigger foods including: carbonated beverages, caffeine, spicy, fried foods, tomatoes, cucumbers, mint, and acidic fruits/juices like orange/lemon/grapefruit. Avoid eating/drinking anything for at least 2 hours before bed. Sleep with bed propped. Discussed increased risk of cdif , bone loss and vit B12 deficiency with vermin exterminator use of PPI with pt, would like to remain on medication at this time Assessment & Plan (11/11/2022 7:12 AM WAREHOUSE TECHNICIAN): HPI: Condition is stable Continue on current meds Omeprazole 40 mg daily, encouraged healthy diet and exercise Avoid trigger foods including: carbonated beverages, caffeine, spicy, fried foods, tomatoes, cucumbers, mint, and acidic fruits/juices like orange/lemon/grapefruit. Avoid eating/drinking anything for at least 2 hours before bed. Sleep with bed propped. Discussed increased risk of cdif , bone loss and vit B12 deficiency with vermin exterminator use of PPI with pt, would like to remain on medication at this time Assessment & Plan (07/28/2020 3:48 PM CDT): Well controlled on omeprazole daily. Class 3 severe obesity due t o excess calories without serious comorbidity with body mass index (BMI) of 40.0 to 44.9 in adult 07/28/2020 Assessment & Plan (05/16/2023 10:35 AM CDT): HPI: Condition is not at/near goal goal BMI <30 A&P: Healthy, high-protein, lower carbohydrate, lower fat lifestyle and exercise for 150min/week recommended Recommend tracking everything you put in your mouth on an rigoberto like [employer] Hand Measurements: A fist or cupped hand = 1 cup 1 cup = 1 -2 servings of fruit juice 1 oz. of cold cereal 2 oz. of cooked cereal, rice or pasta 8 oz. of milk or yogurt A thumb = 1 oz. of cheese Consuming low-fat cheese helps you meet the required servings from the milk, yogurt and cheese group. 1 oz. of low-fat cheese counts as 8 oz. of milk or yogurt. Handful = 1-2 oz. of snack food Thumb tip = 1 teaspoon Keep high-fat foods, such as peanut butter and mayonnaise, at a minimum. One teaspoon is equal to the end of your thumb, from the knuckle up. Three teaspoons equals 1 tablespoon. Palm = 3 oz. of meat Choose lean poultry, fish, shellfish and beef. One palm size portion equals 3 oz. for an adult and 1 -2 oz. for a child under 5. 1 tennis ball or a fist= 1/2 cup of fruit and vegetables Healthy diets include a variety of colorful fruits and vegetables every day. The secret to serving size is in your hand. Snacking can add up. Because hand sizes vary, compare your fist size to an actual measuring cup. Assessment & Plan (11/11/2022 7:10 AM WAREHOUSE TECHNICIAN): HPI: Condition is not at/near goal goal BMI <30 A&P: Healthy, high-protein, lower carbohydrate, lower fat lifestyle and exercise for 150min/week recommended Recommend tracking everything you put in your mouth on an rigoberto like [employer] Hand Measurements: A fist or cupped hand = 1 cup 1 cup = 1 -2 servings of fruit juice 1 oz. of cold cereal 2 oz. of cooked cereal, rice or pasta 8 oz. of milk or yogurt A thumb = 1 oz. of cheese Consuming low-fat cheese helps you meet the required servings from the milk, yogurt and cheese group. 1 oz. of low-fat cheese counts as 8 oz. of milk or yogurt. Handful = 1-2 oz. of snack food Thumb tip = 1 teaspoon Keep high-fat foods, such as peanut butter and mayonnaise, at a minimum. One teaspoon is equal to the end of your thumb, from the knuckle up. Three teaspoons equals 1 tablespoon. Palm = 3 oz. of meat Choose lean poultry, fish, shellfish and beef. One palm size portion equals 3 oz. for an adult and 1 -2 oz. for a child under 5. 1 tennis ball or a fist= 1/2 cup of fruit and vegetables Healthy diets include a variety of colorful fruits and vegetables every day. The secret to serving size is in your hand. Snacking can add up. Because hand sizes vary, compare your fist size to an actual measuring cup. Assessment & Plan (05/10/2022 6:34 AM CDT): HPI: Condition is not at/near goal goal BMI <30 A&P: Healthy, high-protein, lower carbohydrate, lower fat lifestyle and exercise for 150min/week recommended Recommend tracking everything you put in your mouth on an rigoberto like [employer] Lower carb substitutions: [employer] carries a zero net carb bread If you are looking for whole potatoes, like to use in soup or new potato shape/flavor, radishes are a great replacement If you are looking for mashed potatoes, riced cauliflower in the frozen bag section are a great replacement For pasta, try using zucchini noodles, lay them out on a cookie sheet and pat dry with a tea towel to try to remove as much moisture as possible. Heat your pasta sauce on the stove and put the noodles in for 30-45 seconds. If you leave them in much longer they will become mushy [place] and/or coconut flour instead of regular flour For pizza dough, try fathead pizza dough recipe online. To get a crispy crust, bake on one side for 8-12 min, then flip over and bake on the other side for 8-12 min, then put toppings on and bake until the cheese on top of pizza melts chaffles recipe online For ice cream, try the brand Enlightened To replace coffee creamer and make it low carb, use heavy creamer with sugar free Torani sweetener For chips, try Whisps or pork rinds For yogurt, try Two Good namibian yogurt Use Renee for recipe ideas. Type in low carb... Hand Measurements: A fist or cupped hand = 1 cup 1 cup = 1 -2 servings of fruit juice 1 oz. of cold cereal 2 oz. of cooked cereal, rice or pasta 8 oz. of milk or yogurt A thumb = 1 oz. of cheese Consuming low-fat cheese helps you meet the required servings from the milk, yogurt and cheese group. 1 oz. of low-fat cheese counts as 8 oz. of milk or yogurt. Handful = 1-2 oz. of snack food Thumb tip = 1 teaspoon Keep high-fat foods, such as peanut butter and mayonnaise, at a minimum. One teaspoon is equal to the end of your thumb, from the knuckle up. Three teaspoons equals 1 tablespoon. Palm = 3 oz. of meat Choose lean poultry, fish, shellfish and beef. One palm size portion equals 3 oz. for an adult and 1 -2 oz. for a child under 5. 1 tennis ball or a fist= 1/2 cup of fruit and vegetables Healthy diets include a variety of colorful fruits and vegetables every day. The secret to serving size is in your hand. Snacking can add up. Remember, 1 handful equals 1 oz. of nuts and small candies. For chips and pretzels, 2 handfuls equals 1 oz. Because hand sizes vary, compare your fist size to an actual measuring cup. Assessment & Plan (02/08/2022 6:42 AM CDT): HPI: Condition is not at/near goal goal BMI <30 A&P: Healthy, high-protein, lower carbohydrate, lower fat lifestyle and exercise for 150min/week recommended Substitutions: Recommend tracking everything you put in your mouth on an rigoberto like Digistrive or [employer] carries a zero net carb bread If you are looking for whole potatoes, like to use in soup or new potato shape/flavor, radishes are a great replacement If you are looking for mashed potatoes, riced cauliflower in the frozen bag section are a great replacement For pasta, try using zucchini noodles, lay them out on a cookie sheet and pat dry with a tea towel to try to remove as much moisture as possible. Heat your pasta sauce on the stove and put the noodles in for 30-45 seconds. If you leave them in much longer they will become mushy [place] and/or coconut flour instead of regular flour For pizza dough, try fathead pizza dough recipe online. To get a crispy crust, bake on one side for 8-12 min, then flip over and bake on the other side for 8-12 min, then put toppings on and bake until the cheese on top of pizza melts chaffles recipe online For ice cream, try the brand Enlightened To replace coffee creamer and make it low carb, use heavy creamer with sugar free Torani sweetener For chips, try Whisps or pork rinds For yogurt, try Two Good namibian yogurt Use Pinterest for recipe ideas. Type in low carb... Assessment & Plan (12/22/2021 8:03 AM WAREHOUSE TECHNICIAN): HPI: Condition is not at/near goal goal BMI <30 A&P: Healthy, high-protein, lower carbohydrate, lower fat lifestyle and exercise for 150min/week recommended We will have pt see Gabi Ríos NP for weight loss program. Substitutions: Recommend tracking everything you put in your mouth on an rigoberto like Digistrive or [employer] carries a zero net carb bread If you are looking for whole potatoes, like to use in soup or new potato shape/flavor, radishes are a great replacement If you are looking for mashed potatoes, riced cauliflower in the frozen bag section are a great replacement For pasta, try using zucchini noodles, lay them out on a cookie sheet and pat dry with a tea towel to try to remove as much moisture as possible. Heat your pasta sauce on the stove and put the noodles in for 30-45 seconds. If you leave them in much longer they will become mushy [place] and/or coconut flour instead of regular flour For pizza dough, try fathead pizza dough recipe online. To get a crispy crust, bake on one side for 8-12 min, then flip over and bake on the other side for 8-12 min, then put toppings on and bake until the cheese on top of pizza melts chaffles recipe online For ice cream, try the brand Enlightened To replace coffee creamer and make it low carb, use heavy creamer with sugar free Torani sweetener For chips, try Whisps or pork rinds For yogurt, try Two Good namibian yogurt Use Pinterest for recipe ideas. Type in low carb... Assessment & Plan (11/09/2021 3:52 AM WAREHOUSE TECHNICIAN): HPI: Condition is not at/near goal goal BMI <30 A&P: Healthy, high-protein, lower carbohydrate, lower fat lifestyle and exercise for 150min/week recommended Substitutions: Recommend tracking everything you put in your mouth on an rigoberto like [employer]fitnesspal or [employer] carries a zero net carb bread If you are looking for whole potatoes, like to use in soup or new potato shape/flavor, radishes are a great replacement If you are looking for mashed potatoes, riced cauliflower in the frozen bag section are a great replacement For pasta, try using zucchini noodles, lay them out on a cookie sheet and pat dry with a tea towel to try to remove as much moisture as possible. Heat your pasta sauce on the stove and put the noodles in for 30-45 seconds. If you leave them in much longer they will become mushy [place] and/or coconut flour instead of regular flour For pizza dough, try fathead pizza dough recipe online. To get a crispy crust, bake on one side for 8-12 min, then flip over and bake on the other side for 8-12 min, then put toppings on and bake until the cheese on top of pizza melts chaffles recipe online For ice cream, try the brand Enlightened To replace coffee creamer and make it low carb, use heavy creamer with sugar free Torani sweetener For chips, try Whisps or pork rinds For yogurt, try Two Good namibian yogurt Use [employer] for recipe ideas. Type in low carb... Assessment & Plan (06/26/2021 6:58 AM CDT): HPI: Condition is not at/near goal goal BMI <30 A&P: Healthy, high-protein, lower carbohydrate, lower fat lifestyle and exercise for 150min/week recommended Substitutions: Recommend tracking everything you put in your mouth on an rigoberto like [employer] or [employer] carries a zero net carb bread If you are looking for whole potatoes, like to use in soup or new potato shape/flavor, radishes are a great replacement If you are looking for mashed potatoes, riced cauliflower in the frozen bag section are a great replacement For pasta, try using zucchini noodles, lay them out on a cookie sheet and pat dry with a tea towel to try to remove as much moisture as possible. Heat your pasta sauce on the stove and put the noodles in for 30-45 seconds. If you leave them in much longer they will become mushy [place] and/or coconut flour instead of regular flour For pizza dough, try fathead pizza dough recipe online. To get a crispy crust, bake on one side for 8-12 min, then flip over and bake on the other side for 8-12 min, then put toppings on and bake until the cheese on top of pizza melts chaffles recipe online For ice cream, try the brand Enlightened To replace coffee creamer and make it low carb, use heavy creamer with sugar free Torani sweetener For chips, try Whisps or pork rinds For yogurt, try Two Good namibian yogurt Use Pinterest for recipe ideas. Type in low carb... Prediabetes 06/25/2020 Overview (06/25/2020): Found 06/25/2020 Assessment & Plan (05/16/2023 10:36 AM CDT): -chronic, stable -Discussed/ordered labs -Healthy, high-protein, lower carbohydrate, lower fat lifestyle and exercise for 150min/week recommended Assessment & Plan (11/11/2022 7:10 AM WAREHOUSE TECHNICIAN): HPI: Condition is stable A&P: Discussed/ordered labs, encouraged healthy, low carbohydrate lifestyle and at least 150min/week of exercise Cervical radiculopathy 06/10/2020 Lumbar radiculopathy 02/05/2020 B12 deficiency 01/22/2020 Assessment & Plan (05/16/2023 10:35 AM CDT): -chronic, not at/near goal - last vitamin B12 level elevated -Discussed/ordered labs -continue off vitamin B12 supplement until new vitamin B12 level can be evaluated Assessment & Plan (11/11/2022 7:13 AM WAREHOUSE TECHNICIAN): HPI: Condition is stable A&P: Discussed/ordered labs, encouraged healthy, low carbohydrate lifestyle and at least 150min/week of exercise, continue on Vitamin B12 2,500 mcg daily Assessment & Plan (01/22/2020 9:23 AM CDT): Discussed/ordered labs, Condition is stable encouraged healthy, low carbohydrate lifestyle and at least 150min/week of exercise, continue on sublingual b12 5000mcg daily She had gastric sleeve Sacroiliitis 01/25/2019 Chronic bilateral low back pain without sciatica 08/07/2018 Assessment & Plan (01/22/2020 9:30 AM CDT): Pt sees pain management. She was seeing Dr. Parr but he retired and will now be seeing Dr. Quispe. Pt takes hydrocodone/acet 10/325mg every 6 hours as needed. Lumbar facet arthropathy 08/07/2018 Assessment & Plan (01/22/2020 9:30 AM CDT): Pt sees pain management. She was seeing Dr. Parr but he retired and will now be seeing Dr. Quispe. Pt takes hydrocodone/acet 10/325mg every 6 hours as needed. Mild intermittent asthma without complication Assessment & Plan (05/16/2023 10:36 AM CDT): -chronic, stable -Discussed/ordered labs -continue on albuterol inhaler 2 puffs every 6 hours as needed -Please consider the albuterol as a rescue only medication. If needing the albuterol more than 2xwk (with the exception if you are using it pre-exercise), please contact office. Assessment & Plan (11/11/2022 7:50 AM WAREHOUSE TECHNICIAN): HPI: Condition is stable Patient tested positive for COVID on 11/04/2022. States she was using her albuterol inhaler more often, but is not needing as much now. A&P: Discussed/ordered labs, encouraged healthy, low carbohydrate lifestyle and at least 150min/week of exercise, continue on albuterol inhaler as needed Assessment & Plan (12/22/2021 8:22 AM WAREHOUSE TECHNICIAN): HPI: Condition is not at/near goal pt feels like she is needing the albuterol every day. Pt is wheezing. A&P: Discussed/ordered labs, encouraged healthy, low carbohydrate lifestyle and at least 150min/week of exercise, start taking advair 250/50mg 1 puff twice daily as a daily controller medication. Rinse mouth well after use to prevent yeast infection in mouth. Please consider the albuterol as a rescue only medication. If needing the albuterol more than 2xwk, please contact office. allergies/cold symptoms can cause an asthma flare so treat the allergies aggresively Assessment & Plan (01/22/2020 9:25 AM CDT): Discussed/ordered labs, Condition is stable encouraged healthy, low carbohydrate lifestyle and at least 150min/week of exercise, she is still smoking, she has been needing her inhaler more recently, but is not sure if she is feeling not able to breathe is from her asthma or anxiety. Assessment & Plan (07/17/2018 10:07 AM CDT): predisone 40mg x 4 days for acute exacerbation. Encouraged smoking cessation/ decreased use. Albuterol inhaler every 4 hours while sick. Azithromycin for uri. Cautioned if she has acute attack or increased wheezing, she should call 911 or go to ER. Cervicalgia 04/28/2018 Cervical post-laminectomy syndrome 04/28/2018 [facility] (current) use of opiate analgesic 04/01 Moderate single current epis ode of major depressive disorder 12/08/2017 Assessment & Plan (11/11/2022 7:39 AM WAREHOUSE TECHNICIAN): Patient reiterated no suicidal thoughts at this time; take medication as directed; contact 911 and go to the ER if becomes suicidal; discussed side effects of medication with patient; encouraged healthy diet and exericise; encouraged patient to see a counselor HPI: Condition is stable A&P: Discussed/ordered labs, encouraged healthy, low carbohydrate lifestyle and at least 150min/week of exercise, continue on Citalopram 20 mg daily and buspirone 15 mg once daily Assessment & Plan (05/10/2022 6:34 AM CDT): Patient reiterated no suicidal thoughts at this time; take medication as directed; contact 911 and go to the ER if becomes suicidal; discussed side effects of medication with patient; encouraged healthy diet and exericise; encouraged patient to see a counselor HPI: Condition is stable A&P: Discussed/ordered labs, encouraged healthy, low carbohydrate lifestyle and at least 150min/week of exercise, continue on citalopram 20mg daily, buspirone approximately once daily and doing well. Continue to work on biofeedback. Assessment & Plan (02/08/2022 8:10 AM CDT): Patient reiterated no suicidal thoughts at this time; take medication as directed; contact 911 and go to the ER if becomes suicidal; discussed side effects of medication with patient; encouraged healthy diet and exericise; encouraged patient to see a counselor HPI: Condition is stable A&P: Discussed/ordered labs, encouraged healthy, low carbohydrate lifestyle and at least 150min/week of exercise, continue on Citalopram 20 mg daily, buspirone 15 mg twice daily as needed. Patient using buspirone approximately once daily and doing well, continue to work on biofeedback. Since this is working, stay on same dose. Return in 3 mo Assessment & Plan (12/22/2021 8:14 AM WAREHOUSE TECHNICIAN): Patient reiterated no suicidal thoughts at this time; take medication as directed; contact 911 and go to the ER if becomes suicidal; discussed side effects of medication with patient; encouraged healthy diet and exericise; encouraged patient to see a counselor HPI: Condition is stable A&P: Discussed/ordered labs, encouraged healthy, low carbohydrate lifestyle and at least 150min/week of exercise, continue on Citalopram 20 mg daily, buspirone 15 mg twice daily as needed. Currently only using the buspirone once daily and doing well. Continue to work on biofeedback. Assessment & Plan (11/09/2021 9:31 AM WAREHOUSE TECHNICIAN): Patient reiterated no suicidal thoughts at this time; take medication as directed; contact 911 and go to the ER if becomes suicidal; discussed side effects of medication with patient; encouraged healthy diet and exericise; encouraged patient to see a counselor HPI: Condition is stable A&P: Discussed/ordered labs, encouraged healthy, low carbohydrate lifestyle and at least 150min/week of exercise, at last office visit we increased citalopram to 20mg daily and increased buspirone to 15mg twice daily as needed. She is currently using it once daily and doing well. She will take a second if her anxiety increases. At this time she has not needed it twice daily. I would like you to work on biofeedback. You can download an rigoberto on your phone. Examples would be headspace, calm, [id number], Personal Denny. Please work on this every day. It is similar to if you were a musician with a big performance coming up. You would practice your instrument every day so that on the day of the big performance, you don't even have to think about playing. This works the same way for using the biofeedback to bring you down from those high stress/anxiety moments. If you practice using the biofeedback skills daily, it will become a second nature and you will be able to help yourself more effectively. Assessment & Plan (06/26/2021 7:27 AM CDT): HPI: Condition is not at/near goal A&P: Discussed/ordered labs, encouraged healthy, low carbohydrate lifestyle and at least 150min/week of exercise, at last office visit we had pt on Lexapro 10 mg daily, buspirone every morning We will increase the lexapro to 20mg daily and increase the buspirone 10mg to twice daily. Recheck in 6 wks Assessment & Plan (04/24/2020 4:06 PM CDT): Patient reiterated no suicidal thoughts at this time; take medication as directed; contact 911 and go to the ER if becomes suicidal; discussed side effects of medication with patient; encouraged healthy diet and exericise; encouraged patient to see a counselor She is doing really good w the lexapro. She has not been needing the buspirone recently, but did work when she was needing it. She has only needed it 1-2 times in the last month She is able to calm herself down. Pt is doing well. We will followup in 3 mo Assessment & Plan (03/11/2020 3:52 PM CDT): Discussed/ordered labs, Condition is improving encouraged healthy, low carbohydrate lifestyle and at least 150min/week of exercise, years ago was on paxil and xaxax. She has been off of it about 18 mo. She then began having crying and depression. She was put on effexor which helped with her depression but not her anxiety. She was taken off effexor, tried on wellbutrin, then zoloft. None of it helped. She is feeling so anxious and not sure if she is just anxious and feeling depressed. We trialed pt on lexapro 10mg daily and buspirone 10mg up to 3 times a day as needed only. Told to consider the buspirone as a rescue only medication. If needing it more than 2 x day, please contact office. She is doing really good w the lexapro. She has not been needing the buspirone recently, but did work when she was needing it. She is able to calm herself down. Pt is doing well. We will followup in 4-6 wks. If she is doing well, we will start doing longer intervals Assessment & Plan (01/22/2020 9:21 AM CDT): Discussed/ordered labs, Condition is worsening encouraged healthy, low carbohydrate lifestyle and at least 150min/week of exercise, years ago was on paxil and xaxax. She has been off of it about 18 mo. She then began having crying and depression. She was put on effexor which helped with her depression but not her anxiety. She was taken off effexor, tried on wellbutrin, then zoloft. None of it helped. She is feeling so anxious and not sure if she is just anxious and feeling depressed. We will trial on lexapro 10mg daily and buspirone 10mg up to 3 times a day as needed only. Please consider the buspirone as a rescue only medication. If needing it more than 2 x day, please contact office. Anxiety 12/08/2017 Assessment & Plan (05/16/2023 9:17 AM CDT): Patient reiterated no suicidal thoughts at this time; take medication as directed; contact 911 and go to the ER if becomes suicidal; discussed side effects of medication with patient; encouraged healthy diet and exericise; encouraged patient to see a counselor -chronic, stable -Discussed/ordered labs -continue on citalopram 20 mg daily and buspirone 15 mg once daily Assessment & Plan (11/11/2022 7:39 AM WAREHOUSE TECHNICIAN): Patient reiterated no suicidal thoughts at this time; take medication as directed; contact 911 and go to the ER if becomes suicidal; discussed side effects of medication with patient; encouraged healthy diet and exericise; encouraged patient to see a counselor HPI: Condition is stable A&P: Discussed/ordered labs, encouraged healthy, low carbohydrate lifestyle and at least 150min/week of exercise, continue on Citalopram 20 mg daily and buspirone 15 mg once daily Assessment & Plan (05/10/2022 7:28 AM CDT): Patient reiterated no suicidal thoughts at this time; take medication as directed; contact 911 and go to the ER if becomes suicidal; discussed side effects of medication with patient; encouraged healthy diet and exericise; encouraged patient to see a counselor HPI: Condition is not at/near goal crying more often. She would like an increase A&P: Discussed/ordered labs, encouraged healthy, low carbohydrate lifestyle and at least 150min/week of exercise, increase citalopram from 20mg daily to 40mg daily, buspirone approximately once daily and doing well. Continue to work on biofeedback. Recommend Calm rigoberto first thing in the am and before bed. Assessment & Plan (02/08/2022 8:04 AM CDT): Patient reiterated no suicidal thoughts at this time; take medication as directed; contact 911 and go to the ER if becomes suicidal; discussed side effects of medication with patient; encouraged healthy diet and exericise; encouraged patient to see a counselor HPI: Condition is stable A&P: Discussed/ordered labs, encouraged healthy, low carbohydrate lifestyle and at least 150min/week of exercise, continue on Citalopram 20 mg daily, buspirone 15 mg twice daily as needed. Patient using buspirone approximately once daily and doing well, continue to work on biofeedback. Since this is working, stay on same dose. Return in 3 mo Assessment & Plan (12/22/2021 6:59 AM WAREHOUSE TECHNICIAN): Patient reiterated no suicidal thoughts at this time; take medication as directed; contact 911 and go to the ER if becomes suicidal; discussed side effects of medication with patient; encouraged healthy diet and exericise; encouraged patient to see a counselor HPI: Condition is stable A&P: Discussed/ordered labs, encouraged healthy, low carbohydrate lifestyle and at least 150min/week of exercise, continue on Citalopram 20 mg daily, buspirone 15 mg twice daily as needed. Currently only using the buspirone once daily and doing well. Continue to work on biofeedback. Assessment & Plan (11/09/2021 9:31 AM WAREHOUSE TECHNICIAN): Patient reiterated no suicidal thoughts at this time; take medication as directed; contact 911 and go to the ER if becomes suicidal; discussed side effects of medication with patient; encouraged healthy diet and exericise; encouraged patient to see a counselor HPI: Condition is stable A&P: Discussed/ordered labs, encouraged healthy, low carbohydrate lifestyle and at least 150min/week of exercise, at last office visit we increased citalopram to 20mg daily and increased buspirone to 15mg twice daily as needed. She is currently using it once daily and doing well. She will take a second if her anxiety increases. At this time she has not needed it twice daily. I would like you to work on biofeedback. You can download an rigoberto on your phone. Examples would be headspace, calm, [id number], Personal Denny. Please work on this every day. It is similar to if you were a musician with a big performance coming up. You would practice your instrument every day so that on the day of the big performance, you don't even have to think about playing. This works the same way for using the biofeedback to bring you down from those high stress/anxiety moments. If you practice using the biofeedback skills daily, it will become a second nature and you will be able to help yourself more effectively. Assessment & Plan (06/26/2021 7:27 AM CDT): Patient reiterated no suicidal thoughts at this time; take medication as directed; contact 911 and go to the ER if becomes suicidal; discussed side effects of medication with patient; encouraged healthy diet and exericise; encouraged patient to see a counselor HPI: Condition is not at/near goal A&P: Discussed/ordered labs, encouraged healthy, low carbohydrate lifestyle and at least 150min/week of exercise, at last office visit we had pt on Lexapro 10 mg daily, buspirone every morning We will increase the lexapro to 20mg daily and increase the buspirone 10mg to twice daily. Recheck in 6 wks Assessment & Plan (05/15/2021 9:15 AM CDT): Patient reiterated no suicidal thoughts at this time; take medication as directed; contact 911 and go to the ER if becomes suicidal; discussed side effects of medication with patient; encouraged healthy diet and exericise; encouraged patient to see a counselor HPI: Condition is worsening A&P: Discussed/ordered labs, encouraged healthy, low carbohydrate lifestyle and at least 150min/week of exercise, continue on lexapro 10mg daily, start taking the buspirone consistently 1-2 times daily. Take it every morning, then if you need one at night, you can take one in the evening. Return in 6 wks Assessment & Plan (04/24/2020 4:05 PM CDT): Patient reiterated no suicidal thoughts at this time; take medication as directed; contact 911 and go to the ER if becomes suicidal; discussed side effects of medication with patient; encouraged healthy diet and exericise; encouraged patient to see a counselor She is doing really good w the lexapro. She has not been needing the buspirone recently, but did work when she was needing it. She has only needed it 1-2 times in the last month She is able to calm herself down. Pt is doing well. We will followup in 3 mo Assessment & Plan (03/11/2020 3:53 PM CDT): Discussed/ordered labs, Condition is improving encouraged healthy, low carbohydrate lifestyle and at least 150min/week of exercise, years ago was on paxil and xaxax. She has been off of it about 18 mo. She then began having crying and depression. She was put on effexor which helped with her depression but not her anxiety. She was taken off effexor, tried on wellbutrin, then zoloft. None of it helped. She is feeling so anxious and not sure if she is just anxious and feeling depressed. We trialed pt on lexapro 10mg daily and buspirone 10mg up to 3 times a day as needed only. Told to consider the buspirone as a rescue only medication. If needing it more than 2 x day, please contact office. She is doing really good w the lexapro. She has not been needing the buspirone recently, but did work when she was needing it. She is able to calm herself down. Pt is doing well. We will followup in 4-6 wks. If she is doing well, we will start doing longer intervals Assessment & Plan (01/22/2020 9:21 AM CDT): Discussed/ordered labs, Condition is worsening encouraged healthy, low carbohydrate lifestyle and at least 150min/week of exercise, years ago was on paxil and xaxax. She has been off of it about 18 mo. She then began having crying and depression. She was put on effexor which helped with her depression but not her anxiety. She was taken off effexor, tried on wellbutrin, then zoloft. None of it helped. She is feeling so anxious and not sure if she is just anxious and feeling depressed. We will trial on lexapro 10mg daily and buspirone 10mg up to 3 times a day as needed only. Please consider the buspirone as a rescue only medication. If needing it more than 2 x day, please contact office. 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 It was recommended that she have f/u EGD 3 years from last. Pt currently taking omeprazole daily. Will schedule EGD. Assessment & Plan (01/22/2020 9:28 AM CDT): Continue on current medomeprazole 40mg daily, encouraged healthy diet and exercise Avoid trigger foods including: carbonated beverages, caffeine, spicy, fried foods, tomatoes, cucumbers, and mint Avoid eating/drinking anything for at least 2 hours before bed. Sleep with bed propped. Discussed increased risk of cdif and vit B12 deficiency with vermin exterminator use of PPI with pt, would like to remain on medication at this time Smoker 11/16/2017 Overview (11/16/2017): 1/2 - pack per day Assessment & Plan (11/11/2022 7:10 AM WAREHOUSE TECHNICIAN): Patient aware of risks of tobacco use up to and including Patient does not have interest in quitting at this time Assessment & Plan (01/22/2020 9:26 AM CDT): Discussed smoking cessation with patient; patient wanting to quit smoking; discussed using calendar method; cutting back by 1-2 cigarettes every 3 days until no longer smoking; discussed breaking habits; discussed moving furniture in house, removing all smoking related items from home; no smoking in home or car; wash santiago, steam clean carpet, wash curtains/blinds; febreeze fabric that cannot be laundered; enlist help from family and friends, let them know you are trying to quit smoking so they can encourage you. Vitamin D deficiency 11/16/2017 Assessment & Plan (05/16/2023 10:36 AM CDT): -chronic, stable -Discussed/ordered labs -continue on vitamin D3 2000 units daily Assessment & Plan (11/11/2022 7:38 AM WAREHOUSE TECHNICIAN): HPI: Condition is stable A&P: Discussed/ordered labs, encouraged healthy, low carbohydrate lifestyle and at least 150min/week of exercise, continue on vitamin d3 2000 units daily Assessment & Plan (01/22/2020 9:22 AM CDT): Discussed/ordered labs, Condition is stable encouraged healthy, low carbohydrate lifestyle and at least 150min/week of exercise, start on Take vit d3 2000 units daily-this will be a halfway medication Positive test for human papillomavirus (HPV) Current Treatment and Therapy Plans No current plan information found. Past Treatment and Therapy Plans No past plan information found. Lifetime Dose Tracking * Chemical Lifetime Dose Automatic Entry Manual Entr y Fluoro Time 5.78 minutes 5.78 minutes 0 minutes Air kerma at the reference point (Ka,r) 175.83 mGy 1 75.83 mGy 0 mGy DLP 82.5 mGycm 82.5 mGycm 0 mGycm CTDIvol 2.7 mGy 2.7 mGy 0 mGy Resolved Problems Problem Noted Date Diagnosed Date Resolved Date RUQ pain 07/28/2020 11/11/2022 Assessment & Plan (12/22/2021 8:12 AM WAREHOUSE TECHNICIAN): Condition is worsening since fall 2 wks ago. She has had CT and ultrasound that show no cause for abd pain/back pain. She had fatty tissue, but that should not be causing the pain. Refer to GI We will also do a rib series xray to make sure she does not have rib fracture Assessment & Plan (07/28/2020 3:43 PM CDT): Feels as if there is something there and she feels as if her fat gets caught in my ribs sometimes. She has history of cholecystectomy. CT was unremarkable and no explanation for pain. I do not suspect GI origin of this pain. LLQ pain 07/28/2020 11/11/2022 Assessment & Plan (07/28/2020 3:48 PM CDT): Pain described as dull but can also be sharp. She sometimes gets during BM's and goes away once she has BM's. She also experiences this at times during sex or if she lies on this side. She does have issues with diarrhea frequently due to history of cholecystectomy and gastric bypass. She had colonoscopy 2016 [address] unremarkable. Will try dicyclomine prn. She also has an appt with production dispatcher to rule out production dispatcher cause of pain. Pt does have chronic back pain which could be contributing. Diarrhea 07/28/2020 11/11/2022 Assessment & Plan (07/28/2020 3:46 PM CDT): Pt has about 4 episodes of diarrhea daily and all occurring in the morning. She occasionally has another BM but rare. It is always 6 or 7 on Lee stool scale. Dicyclomine TID prn for diarrhea and abdominal pain. Chronic rhinitis 02/05/2020 11/11/2022 Assessment & Plan (11/11/2022 7:12 AM WAREHOUSE TECHNICIAN): Assessment & Plan (02/05/2020 11:09 AM CDT): Discussed environmental controls No smoking around patient, no animals in bedroom, keep windows closed, no hanging clothes on the line Take zyrtec/claritin/allgera in the am Saline rinse in the am Saline rinse about 15 min before bed Flonase 2 sprays each nostril, aim away from cartilage, spray once-baby sniff, switch to the other nostril and repeat. Wait a min or two and then do the second spray in each nostril, followed by a baby sniff If working or playing outside, may need to do saline rinses when coming in and change clothes right away Recommend staying on the above treatment from the beginning of December to Come off of meds if possible during the summer Then restart on meds mid to late May until Thanksgiving Come off of meds if possible during the winter Sprain of interphalangeal verna int of right thumb 10/03/2018 01/22/2020 Hand sprain, right, initial encounter 10/03/2018 01/22/2020 Basal cell carcinoma (BCC) of face 08/02/2018 01/22/2020 [place] eye disease of both eyes 07/19/2018 01/22/2020 Acute non-recurrent frontal sinusitis 07/17/2018 01/22/2020 Assessment & Plan (07/17/2018 10:05 AM CDT): Treat with azithromycin. May use otc medication for symptoms. Neuroma of hand 06/26/2018 07/17/2018 Neuroma digital nerve, left 06/05/2018 07/17/2018 Ganglion of flexor tendon sh eath of left thumb 06/05/2018 01/22/2020 Ganglion cyst of flexor tend on sheath of finger of left hand 06/05/2018 01/22/2020 Overview (06/05/2018): Added automatically from request for surgery [id number] Mass of finger of left hand 05/25/2018 01/22/2020 Assessment & Plan (05/25/2018 9:54 AM CDT): Unfortunately due to the location of this mass, a hand specialist or plastic surgeon would be more suitable for the patient. Will give referral to Dr. Matthews. This was discussed with the patient and she graciously agrees to the plan. 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 04/28/2018 07/17/2018 Musculoskeletal disorder and symptoms referable to neck 04/28/2018 07/17/2018 Class 3 severe obesity due t o excess calories with serious comorbidity and body mass index (BMI) of 40.0 to 44.9 in adult 04/27/2018 3 Assessment & Plan (06/25/2020 7:36 AM CDT): Healthy, low carbohydrate lifestyle and exercise for 150min/week recommended Substitutions: [employer] carries a zero net carb bread If you are looking for whole potatoes, like to use in soup or new potato shape/flavor, radishes are a great replacement If you are looking for mashed potatoes, riced cauliflower in the frozen bag section are a great replacement For pasta, try using zucchini noodles, lay them out on a cookie sheet and pat dry with a tea towel to try to remove as much moisture as possible. Heat your pasta sauce on the stove and put the noodles in for 30-45 seconds. If you leave them in much longer they will become mushy [place] and/or coconut flour instead of regular flour For pizza dough, try fathead pizza dough recipe online. To get a crispy crust, bake on one side for 8-12 min, then flip over and bake on the other side for 8-12 min, then put toppings on and bake until the cheese on top of pizza melts chaffles recipe online For ice cream, try the brand Enlightened Use Pinterest for recipe ideas. Type in low carb... Assessment & Plan (04/24/2020 4:07 PM CDT): Healthy, low carbohydrate lifestyle and exercise for 150min/week recommended Assessment & Plan (03/11/2020 1:34 PM CDT): Healthy, low carbohydrate lifestyle and exercise for 150min/week recommended Assessment & Plan (02/05/2020 11:15 AM CDT): Healthy, low carbohydrate lifestyle and exercise for 150min/week recommended Assessment & Plan (01/21/2020 11:05 AM CDT): Healthy, low carbohydrate lifestyle and exercise for 150min/week recommended Dental abscess 01/09/2018 07/17/2018 Facial cellulitis 01/09/2018 07/17/2018 Peroneal tendonitis of left lower extremity 11/16/2017 11/16/2017 Overview (11/16/2017): Managed by Dr. Perkins Low serum cortisol level 11/16/2017 Overview (11/16/2017): Managed by Dr. Sarabia
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
--- OUTSIDE RECORDS SUMMARY | 2025-03-28 14:25 | XMS_ITS | Encounter Summary ---
Author Organization [facility] Address [address] [place] [address] Phone Care Team Providers Care Armature Winder Helper Repair Name Role Phone GeetaZuly REQUIREMENTS ANALYST Primary Care Provider [phone] Emelyn Mills RN Unavailable Unavailabl Violette Berkowitz RN Unavailable Unavailab Taryn Escalante RN Unavailable Unavailab Nery Goel NP Primary Care Provider [phone] John Quispe MD Unavailable [phone] Butch Holloway MD Unavailable Arcenio Mcnamara MD Unavailable [phone] Roxane Holcomb MD Primary Care Provider [phone] Misty Aguirre REQUIREMENTS ANALYST Primary Care Provider [phone] Encounter Details Date Type Department Care Team (Late st Contact Info) Description 11/16/2017 Orders Only [facility] ProviderMarychuy MD [facility] [place] [address] Social History Tobacco Use Types Packs/Day Years Used Date Smoking Tobacco: Every Day Cigarettes Smokeless Tobacco: Never Comments:pack a day Alcohol Use Standard Drinks/Week Comments No 0 (1 standard drink = 0.6 oz pur e alcohol) Comments Unknown Sex and Gender Information Value Date Recorded Sex Assigned at Not on file Legal Sex Female 6:56 PM MINE ENGINEER Gender Identity Not on file Sexual Orientation Straight 06/15/2021 9: 00 AM CDT documented as of this encounter Plan of Treatment Not on file documented as of this encounter Goals Goal Patient Goal Type Associated Problems Recent Progress Patient-Stated? Author -Pain Behavioral Health On track( 023 3:04 PM CDT) No Emelyn Mills, RN Note: Patient will establish a comfort-function goal and identify the pain level that will allow the patient to perform desired activities and achieve an acceptable quality of life. -Pain Behavioral Health On track( 019 3:19 PM MINE ENGINEER) No Emelyn Mills, JANNET Note: Patient will report that the pain management medication regimen achieves comfort-function goal without the occurrence of adverse effects. documented as of this encounter Procedures Procedure Name Priority Date/Time Associated Diagnosis Comments DISCHARGE LABORATORY CUMULATIVE REPORT 11/16/2017 12:00 AM MINE ENGINEER documented in this encounter Results * DISCHARGE LABORATORY CUMULATIVE REPORT (11/16/2017 12:00 AM MINE ENGINEER) Narrative 11/16/2017 12:00 AM MINE ENGINEER Ordered by an unspecified provider. us Historical Provider LAB BLOOD ORDERABLES Hien l Result documented in this encounter Visit Diagnoses Not on filedocumented in this encounter Additional Health Concerns Infection Onset Date Last Indicated Resolved Time COVID: Suspected 11/04/2022 11/04/2022 11/04/2022 11:18 AM MINE ENGINEER COVID: Suspected 11/04/2022 11/04/2022 11/05/2022 3:06 AM MINE ENGINEER COVID: Suspected 11/04/2022 11/04/2022 11/05/2022 9:20 AM MINE ENGINEER COVID19 11/04/2022 11/04/2022 11/14/2022 3:05 AM MINE ENGINEER COVID: Recovered Comment:Added based on recent COVID infection. 11/14/2022 11/19/2022 02/12/2023 3:05 AM C DT COVID: Suspected 01/20/2023 01/25/2023 01/21/2023 3:05 AM CDT COVID: Suspected 06/07/2023 06/07/2023 06/07/2023 11:48 PM CDT COVID: Suspected 11/03/2023 11/03/2023 11/03/2023 11:06 PM MINE ENGINEER COVID: Suspected 10/27/2024 10/27/2024 10/27/2024 12:38 PM MINE ENGINEER documented as of this encounter Care Teams Armature Winder Helper Repair Relationship Specialty Start Date End Date Zuly Connor NP [address] [place] [address] [address] [place] [address] PCP - General Family Medicine 11/16/17 12/04/19 Nery Rinaldi NP PCP - General Family Medicine 12/05/19 11/01/22 Roxane Holcomb MD [address] [address] PCP - General Obstetrics and Gynecology 12/22/2301/30 Misty Aguirre NP [address] [address] PCP - General Nurse Practitioner 02/25/25 Emelyn Mills, RN Registered Nurse 02/09/18 02/04/20 Violette Layne, JANNET Registered Nurse Pain Management 03/20/18 02/04/20 Taryn Garcia, RN Registered Nurse 04/28/18 02/04/20 John Quispe MD Anesthesiologist Anesthesiology 02/05/20 Butch Holloway MD Referring Physician Otolaryngology 05/17/23 Arcenio Mcnamara MD [address] [facility] [address] P[address] [address] Disciplinary Hearing Officer Obstetrics and Gynecology 05/17/23 documented as of this encounter
--- OUTSIDE RECORDS SUMMARY | 2025-03-28 14:25 | XMS_ITS | Clinical Summary ---
Author Organization [facility] Address [address] [place] [address] Care Team Providers Care Public Address Systems Mechanic Name Role Phone oJhn Quispe MD Unavailable [phone] Butch Holloway MD Unavailable Arcenio Mcnamara MD Unavailable + [phone] Misty Aguirre NP Primary Care Provider + [phone] Allergies No known active allergies Medications cholecalciferol (VITAMIN D-3) 2000 unit capsule Active albuterol HFA (PROVENTIL HFA,VENTOLIN HFA,PROAIR HFA) 90 mcg/actuation inhaler Inhale 2 puffs every 6 (six) hours as needed for wheezing 1 each 11/11/19 23 Active naproxen (Aleve) 220 mg tablet Take 1 tablet (220 mg total) by mouth daily Active FLUoxetine (PROzac) 40 mg capsule Take 2 capsules (80 mg total) by mouth daily Active cyclobenzaprine (FLEXERIL) 10 mg tabletIndicatio ns:Lumbar facet arthropathy Take 1 tablet (10 mg total) by mouth nightly as needed for muscle spasms 30 tablet 1 10/12/20 24 Active ferrous sulfate 325 mg (65 mg of elemental iron) tabletIndicatio ns:Iron Deficiency Anemia Take 1 tablet (325 mg total) by mouth daily with breakfast Active fluorometholone (FML) 0.1 % ophthalmic suspension Administer 1 drop into the left eye daily 10/12/20 24 Active HYDROcodone-sarina taminophen (NORCO) 10-325 mg per tabletIndicatio ns:Pain Take 1 tablet by mouth 4 (four) times a day as needed for pain 120 tablet 02/16/20 25 Active HYDROcodone-sarina taminophen (NORCO) 10-325 mg per tabletIndicatio ns:Pain Take 1 tablet by mouth 4 (four) times a day as needed for pain 120 tablet 03/17/20 25 025 Active HYDROcodone-sarina taminophen (NORCO) 10-325 mg per tabletIndicatio ns:Pain Take 1 tablet by mouth 4 (four) times a day as needed for pain 120 tablet 04/16/20 25 025 Active gabapentin (NEURONTIN) 300 mg capsuleIndicati ons:Lumbar facet arthropathy,Lum bar radiculopathy,S acroiliitis,Chr onic bilateral low back pain without sciatica Take 1 capsule (300 mg total) by mouth 2 (two) times a day 60 capsule 2 02/16/20 25 Active omeprazole (PriLOSEC) 40 mg capsule TAKE 1 CAPSULE BY MOUTH EVERY DAY 90 capsule 2 03/11/20 25 Active omeprazole (PriLOSEC) 40 mg capsule TAKE 1 CAPSULE BY MOUTH EVERY DAY 90 capsule 2 05/21/20 24 025 Discontinued Active Problems Problem Noted Date Diagnosed Date Benign neoplasm of base of tongue 12/14/2024 Assessment & Plan (12/14/2024 10:20 AM CROSSTIE INSPECTOR): Doxycycline twice daily for at least 2 weeks, may continue for 3 weeks Diflucan if needed 64 ounces of caffeine free and soda free fluid daily Consider Allergy and Immunology if no improvement in 6 weeks Mass of tongue 12/03/2024 Assessment & Plan (12/03/2024 11:29 AM CROSSTIE INSPECTOR): Direct laryngoscopy with Biopsy of Right base [...] 12/03/2024 Assessment & Plan (12/03/2024 11:29 AM CROSSTIE INSPECTOR): Direct laryngoscopy with Biopsy of Right base [...] is scheduled for sinus surgery with Dr. Jewel MIRAMONTES at [facility] on 06/14/23. Assessment & Plan (03/16/2023 [...] 11/11/2022 Assessment & Plan (11/11/2022 7:51 AM CROSSTIE INSPECTOR): -patient tested positive - patient was using her albuterol inhaler more often, but is not needing it as frequently now -reports she is feeling better - advised patient to continue wearing mask and quarantining for the next 3 days SOB (shortness of breath) 11/04/2022 Assessment & Plan (11/04/2022 2:56 PM CROSSTIE INSPECTOR): worsening Patient is at increased risk for [...] 12/22/2021 Assessment & Plan (11/11/2022 7:12 AM CROSSTIE INSPECTOR): HPI: Condition is stable A&P: Discussed environmental [...] summer Then restart on meds mid to may until Thanksgiving Come off of meds if possible during the winter Assessment & Plan (12/22/2021 8:23 AM CROSSTIE INSPECTOR): HPI: Condition is not at/near goal A&P: [...] staying on the above treatment from the of December to Come off of meds if possible during the summer Then restart on meds mid to may until Thanksgiving Come off of meds if possible during the winter DDD (degenerative disc disease), lumbar 06/17/20 21 Insomnia secondary to chronic pain 11/10/2020 Shukla's esophagus with dysplasia 11/07/2020 Overview (11/07/2020): Added automatically from request for surgery [id number] History of Shukla's esophagus 07/28/2020 Overview (07/28/2020): Added automatically from request for surgery [id number] Gastroesophageal reflux disease 07/28/2020 Overview (07/28/2020): Added automatically from request for surgery [id number] Assessment & Plan (05/16/2023 10:35 AM CDT): [...] bone loss and vit B12 deficiency with fpc use of PPI with pt, would like to remain on medication at this time Assessment & Plan (11/11/2022 7:12 AM CROSSTIE INSPECTOR): HPI: Condition is stable Continue on current meds Omeprazole 40 mg daily, encouraged healthy diet and exercise Avoid trigger foods including: carbonated beverages, caffeine, spicy, fried foods, tomatoes, cucumbers, mint, and acidic fruits/juices like orange/lemon/grapefruit. Avoid eating/drinking anything for at least 2 hours before bed. Sleep with bed propped. Discussed increased risk of cdif , bone loss and vit B12 deficiency with intermediate frame tender use of PPI with pt, would like [...] in your mouth on an rigoberto like [employer] Hand Measurements: A fist or cupped hand [...] cup. Assessment & Plan (11/11/2022 7:10 AM CROSSTIE INSPECTOR): HPI: Condition is not at/near goal goal BMI <30 A&P: Healthy, high-protein, lower carbohydrate, lower fat lifestyle and exercise for 150min/week recommended Recommend tracking everything you put in your mouth on an rigoberto like [employer] Hand Measurements: A fist or cupped hand [...] in your mouth on an rigoberto like [employer] Lower carb substitutions: Alyssa carries a zero net carb bread If [...] in much longer they will become mushy Bailey and/or coconut flour instead of regular flour [...] pork rinds For yogurt, try Two Good chadian yogurt Use Renee for recipe ideas. Type [...] in your mouth on an rigoberto like [employer] or [employer] carries a zero net carb bread [...] in much longer they will become mushy Bailey and/or coconut flour instead of regular flour [...] pork rinds For yogurt, try Two Good chadian yogurt Use Pinterest for recipe ideas. Type in low carb... Assessment & Plan (12/22/2021 8:03 AM CROSSTIE INSPECTOR): HPI: Condition is not at/near goal goal BMI <30 A&P: Healthy, high-protein, lower carbohydrate, lower fat lifestyle and exercise for 150min/week recommended We will have pt see Gabi Ríos NP for weight loss program. Substitutions: Recommend tracking everything you put in your mouth on an rigoberto like [employer] or [employer] carries a zero net carb bread [...] in much longer they will become mushy Bailey and/or coconut flour instead of regular flour [...] pork rinds For yogurt, try Two Good chadian yogurt Use Pinterest for recipe ideas. Type in low carb... Assessment & Plan (11/09/2021 3:52 AM CROSSTIE INSPECTOR): HPI: Condition is not at/near goal goal BMI <30 A&P: Healthy, high-protein, lower carbohydrate, lower fat lifestyle and exercise for 150min/week recommended Substitutions: Recommend tracking everything you put in your mouth on an rigoberto like [employer] or [employer] carries a zero net carb bread If [...] in much longer they will become mushy Bailey and/or coconut flour instead of regular flour [...] pork rinds For yogurt, try Two Good chadian yogurt Use Pinterest for recipe ideas. Type in low carb... Assessment & Plan (06/26/2021 6:58 AM CDT): HPI: Condition is not at/near goal goal BMI <30 A&P: Healthy, high-protein, lower carbohydrate, lower fat lifestyle and exercise for 150min/week recommended Substitutions: Recommend tracking everything you put in your mouth on an rigoberto like [employer] or [employer] carries a zero net carb bread [...] in much longer they will become mushy Bailey and/or coconut flour instead of regular flour [...] pork rinds For yogurt, try Two Good chadian yogurt Use Pinterest for recipe ideas. Type in low carb... Prediabetes 06/25/2020 Overview (06/25/2020): Found 06/25/2020 Assessment & Plan (05/16/2023 10:36 AM CDT): -chronic, stable -Discussed/ordered labs -Healthy, high-protein, lower carbohydrate, lower fat lifestyle and exercise for 150min/week recommended Assessment & Plan (11/11/2022 7:10 AM CROSSTIE INSPECTOR): HPI: Condition is stable A&P: Discussed/ordered labs, [...] evaluated Assessment & Plan (11/11/2022 7:13 AM CROSSTIE INSPECTOR): HPI: Condition is stable A&P: Discussed/ordered labs, [...] office. Assessment & Plan (11/11/2022 7:50 AM CROSSTIE INSPECTOR): HPI: Condition is stable Patient tested positive for COVID on 11/04/2022. States she was using her albuterol inhaler more often, but is not needing as much now. A&P: Discussed/ordered labs, encouraged healthy, low carbohydrate lifestyle and at least 150min/week of exercise, continue on albuterol inhaler as needed Assessment & Plan (12/22/2021 8:22 AM CROSSTIE INSPECTOR): HPI: Condition is not at/near goal pt [...] ER. Cervicalgia 04/28/2018 Cervical post-laminectomy syndrome 04/28/2018 senior living (current) use of opiate analgesic 04/01 Moderate single current epis ode of major depressive disorder 12/08/2017 Assessment & Plan (11/11/2022 7:39 AM CROSSTIE INSPECTOR): Patient reiterated no suicidal thoughts at this [...] mo Assessment & Plan (12/22/2021 8:14 AM CROSSTIE INSPECTOR): Patient reiterated no suicidal thoughts at this [...] biofeedback. Assessment & Plan (11/09/2021 9:31 AM CROSSTIE INSPECTOR): Patient reiterated no suicidal thoughts at this [...] your phone. Examples would be headspace, calm, [id number], Personal Denny. Please work on this every [...] daily Assessment & Plan (11/11/2022 7:39 AM CROSSTIE INSPECTOR): Patient reiterated no suicidal thoughts at this [...] mo Assessment & Plan (12/22/2021 6:59 AM CROSSTIE INSPECTOR): Patient reiterated no suicidal thoughts at this [...] biofeedback. Assessment & Plan (11/09/2021 9:31 AM CROSSTIE INSPECTOR): Patient reiterated no suicidal thoughts at this [...] your phone. Examples would be headspace, calm, [id number], Personal Denny. Please work on this every [...] of cdif and vit B12 deficiency with fpc use of PPI with pt, would like to remain on medication at this time Smoker 11/16/2017 Overview (11/16/2017): 1/2 - pack per day Assessment & Plan (11/11/2022 7:10 AM CROSSTIE INSPECTOR): Patient aware of risks of tobacco use [...] no smoking in home or car; wash silva, steam clean carpet, wash curtains/blinds; febreeze fabric that cannot be laundered; enlist help from family and friends, let them know you are trying to quit smoking so they can encourage you. Vitamin D deficiency 11/16/2017 Assessment & Plan (05/16/2023 10:36 AM CDT): -chronic, stable -Discussed/ordered labs -continue on vitamin D3 2000 units daily Assessment & Plan (11/11/2022 7:38 AM CROSSTIE INSPECTOR): HPI: Condition is stable A&P: Discussed/ordered labs, encouraged healthy, low carbohydrate lifestyle and at least 150min/week of exercise, continue on vitamin d3 2000 units daily Assessment & Plan (01/22/2020 9:22 AM CDT): Discussed/ordered labs, Condition is stable encouraged healthy, low carbohydrate lifestyle and at least 150min/week of exercise, start on Take vit d3 2000 units daily-this will be a fpc medication Positive test for human papillomavirus (HPV) Resolved Problems Problem Noted Date Diagnosed Date Resolved Date RUQ pain 07/28/2020 11/11/2022 Assessment & Plan (12/22/2021 8:12 AM CROSSTIE INSPECTOR): Condition is worsening since fall 2 wks [...] cholecystectomy and gastric bypass. She had colonoscopy 2017 that was [address] unremarkable. Will try dicyclomine prn. She also has an appt with pershing missile crewmember to rule out pershing missile crewmember cause of pain. Pt does have chronic back pain which could be contributing. Diarrhea 07/28/2020 11/11/2022 Assessment & Plan (07/28/2020 3:46 PM CDT): Pt has about 4 episodes of diarrhea daily and all occurring in the morning. She occasionally has another BM but rare. It is always 6 or 7 on [place] stool scale. Dicyclomine TID prn for diarrhea and abdominal pain. Chronic rhinitis 02/05/2020 11/11/2022 Assessment & Plan (11/11/2022 7:12 AM CROSSTIE INSPECTOR): Assessment & Plan (02/05/2020 11:09 AM CDT): [...] on meds mid to late May until Thanksving Come off of meds if possible during the winter Sprain of interphalangeal verna int of right thumb 10/03/2018 01/22/2020 Hand sprain, right, initial encounter 10/03/2018 01/22/2020 Basal cell carcinoma (BCC) of face 08/02/2018 01/22/2020 [place] eye disease of both eyes 07/19/2018 01/22/2020 [...] (06/05/2018): Added automatically from request for surgery [id number] Mass of finger of left hand 05/25/2018 [...] in much longer they will become mushy Bailey and/or coconut flour instead of regular flour [...] 11/16/2017 Overview (11/16/2017): Managed by Dr. Sarabia Encounters Date Type Department Care Team Description 02/20/2025 10:26 AM CDT - 02/20/2025 11:59 PM CDT Hospital Encounter [facility] [address] [place] [address] A, [address] [place] [address] Norris Mayberry MD Lumbar radiculopathy Discharge Disposition: Discharge to home or self care 02/15/2025 12:06 PM CDT - 02/15/2025 11:59 PM CDT Hospital Encounter [facility] [address] [facility] A, [address] [place] [address] Barb Hayward NP Lumbar radiculopathy (Primary Dx); intermediate frame tender (current) use of opiate analgesic; Neuralgia Discharge Disposition: Discharge to home or self care from Last 3 Months Immunizations Immunization Administration Dates Next Due Hep B Vaccine 05/28/2011 Influenza, Quadrivalent, Spl it, Preservative Free, Intramuscular 10/13/2017,08/07/2015 Influenza, Trivalent, IM (MDV) 08/09/2014 Influenza, Unspecified 01/20/2023(Deferr ed: Patient Refused - Pt refused),07/31/2022(Deferred: Patient Refused),07/31/2021(Deferred: Patient Refused),07/31/2021(Deferred: Patient Refused),07/31/2021(Deferred: Patient Refused),07/01/2021(Deferred: Patient Refused),09/07/2020(Deferred: Patient Refused),08/04/2020(Deferred: Patient Refused),08/04/2020(Deferred: Patient Refused),07/31/2020(Deferred: Patient Refused),07/31/2020(Deferred: Patient Refused),08/04/2018 MMR 07/28/2020,06/26/2020 Moderna SARS-CoV-2 Monovalen t Vaccination (12+ YRS) 09/25/2021,01/19/2021,12/18/2020 PPD TEST 06/25/2020,08/28/2014 Pneumococcal Conjugate Pcv20 05/10/2022 Pneumococcal Polysaccharide PPV23 10/13/2017 Tdap 06/25/2020 Surgical History Surgery Date Site/Laterality Comments TUBAL LIGATION GASTRIC RESTRICTION SURGERY TONSILECTOMY, ADENOIDECTOMY, BILATERAL MYRINGOTOMY AND TUBES CHOLECYSTECTOMY CERVICAL SPINE SURGERY 10/31/2010 - 10/30/2011 SHOULDER SURGERY Left LASER ABLATION CONDYLOMA CERVICAL / VULVAR 10/31/2009 - 10/30/2010 THUMB SURGERY 06/13/2018 Left COLONOSCOPY 07/07/2017 UPPER GASTROINTESTINAL ENDOSCOPY BARIATRIC SURGERY 07/01/2010 - 07/30/2010 EYE SURGERY Left corneal transplant left eye NOSE SURGERY Medical History Medical History Date Comments Shukla esophagus Back ache Smoking Anxiety Depression Arthritis Chronic pain disorder Asthma Allergy Induced 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 Sarabia Cornea transplant recipient Left eye Family History Medical History Relation Name Comments Cancer Brother Elvis brain Stroke Brother Elvis Heart attack Father Gene Heart disease Father Gene Diabetes Maternal Grandfather Frank Diabetes Maternal Grandmother Anupama Stroke Maternal Grandmother Anupama Diabetes Mother [place] Hyperlipidemia Mother [place] Hypertension Mother [place] Stroke Mother [place] Breast cancer Neg Hx Ovarian cancer Neg Hx Thyroid cancer Neg Hx Relation Name Status Comments Brother Elvis Father Gene Maternal Grandfather Frank Maternal Grandmother Anupama Mother [place] Social History Tobacco Use Types Packs/Day Years Used Date Smoking Tobacco: Former Cigarettes 0.8 47.4 S tarted: 10/31/1977 Smokeless Tobacco: Never Tobacco Cessation:Counseling Given: Not Answered Comments:pack a day Alcohol Use Standard Drinks/Week Comments Yes 0 (1 standard drink = 0.6 oz pur e alcohol) 1 drink monthly AUDIT-C Answer Date Recorded Q1: How often do you have a drink containing alc ohol? Monthly or less 12/06/2024 Q2: How many drinks containi ng alcohol do you have on a typical day when you are drinking? 1 or 2 12/06/2024 Q3: How often do you have si x or more drinks on one occasion? Never 12/06/2024 PHQ-2 Answer Date Recorded PHQ-2 Total Score (If total score is 3 or more points, staff should administer the PHQ-9) 0 02/15/2025 PHQ-9 Answer Date Recorded PHQ-9 Total Score 2 02/15/2025 Personal Safety Answer Date Recorded Have you ever been in or are you currently in a harmful physical or emotional relationship or is someone making you feel afraid or unsafe? Denies 12/06/2024 Comments No Sex and Gender Information Value Date Recorded Sex Assigned at Not on file Legal Sex Female 6:56 PM CROSSTIE INSPECTOR Gender Identity Not on file Sexual Orientation Straight 06/15/2021 9: 00 AM CDT Obstetrics History Para Term AB IAB SAB Ectopic Multiple Livin g Live Births 4 3 3 Date Outcome GA Total Labor Labor/2nd/3rd Weight Sex Type Anes PTL Stacia A1 A5 Name Clin Term Term Term Last Filed Vital Signs Vital Sign Reading Time Taken Comments Blood Pressure 130/68 02/20/2025 11:00 AM CDT Pulse 68 02/20/2025 11:00 AM CDT Temperature 36.3 C (97.4 F) 02/20/2025 10:33 AM CDT Respiratory Rate 18 02/20/2025 11:00 AM CDT Oxygen Saturation 100% 02/20/2025 11:00 AM CDT Inhaled Oxygen Concentration - - Weight 98.4 kg (217 lb) 12/14/2024 9:55 AM CROSSTIE INSPECTOR Height 160 cm (5' 2.99) 12/14/2024 9:55 AM CROSSTIE INSPECTOR Body Mass Index 38.45 12/14/2024 9:55 AM CROSSTIE INSPECTOR Plan of Treatment Health Maintenance Due Date Last Done Comments Zoster Vaccine (1 of 2) 2015 Cervical Cancer Screening 11/04/2018 11/04/2017 Regular Well Visit/Exam 18-64 06/25/2021 06/25/2020 Covid-19 Vaccine ( - 2023-2 5 season) 2024 09/25/2021, 01/19/2021, 12/18/2020 Breast Cancer Screening-Mammogram 02/02/2025 02/03/2024, 05/30/2021, 05/05/2020, Additional history exists Lung Cancer Screening 04/24/2025 04/23/2024 Influenza Vaccine (Season Ended) 2025 08/04/2018, 10/13/2017, 08/07/2015, Additional history exists Depression Screening 02/15/2026 02/15/2025, 02/15/2025, 10/12/2024, Additional history exists DTaP/Tdap/Td Vaccine (2 - Td or Tdap) 06/25/2030 06/25/2020 Colon Cancer Screening-Colonoscopy 04/25/2034 04/25/2024, 07/07/2017 Hepatitis B Screening Completed 05/28/2011 Hepatitis C Screening Completed 08/06/2020, 020 Pneumococcal vaccine <65 Completed 05/10/2022, 09/30 Colon Cancer Screening-CT Colonography Discontinued 04/25/2024, 07/07/2017 Colon Cancer Screening-DNA Stool Discontinued 04/25/20 24, 07/07/2017 Colon Cancer Screening-FIT Discontinued 04/25/2024, Colon Cancer Screening-Sigmoidoscopy Discontinued 04/25/2024, 07/07/2017 Goals Goal Patient Goal Type Associated Problems Recent Progress Patient-Stated? Author BH-Pain Behavioral Health On track( 023 3:04 PM CDT) No Emelyn Mills, JANNET Note: Patient will establish a comfort-function goal and identify the pain level that will allow the patient to perform desired activities and achieve an acceptable quality of life. -Pain Behavioral Health On track( 019 3:19 PM CROSSTIE INSPECTOR) No Emelyn Mills RN Note: Patient will report that the pain management medication regimen achieves comfort-function goal without the occurrence of adverse effects. Medical Devices Implanted Type Area Harness Inspector Device Identifier Shelf Expiration Date Model / Serial / Lot [employer] [id number] Avance 2-3mm 30mm Allograft Multiple Clean Graft Soft Tissue - [id number] Implanted:Qty: 1 on 06/13/2018 by John Matthews III, MD at [facility] [employer] [id number] 02/27/2019 [id number] / / [id number] [employer] [id number] Seprafilm 6x5in Barrier Adhesion Sterile Disposable Latex Free - [id number] Implanted:Qty: 1 on 06/13/2018 by John Matthews III, MD at [facility] [employer] [id number] 08/30/2019 [id number] / / [id number] Procedures Procedure Name Priority Date/Time Associated Diagnosis Comments PAIN MGMT IMAGING LUMBAR/CAUDAL EPIDURAL STEROID INJ Schedule Routine, Read Routine (OP Routine) 02/20/2025 10:57 AM CDT Lumbar radiculopathy COLONOSCOPY 04/25/2024 9:[address] LUNG CANCER SCREENING Schedule Routine, Read Routine (OP Routine) 04/23/2024 4:56 PM CDT Encounter for screening for malignant neoplasm of respiratory organs Nicotine dependence, cigarettes, uncomplicated SCREENING MAMMOGRAM BILATERAL W [place] Schedule Routine, Read Routine (OP Routine) 02/03/2024 9:38 AM CDT Screening mammogram for breast cancer HEPATITIS PANEL, ACUTE Routine 08/06/2020 2:31 PM CDT HM PAP SMEAR WITH HPV Routine 11/04/2017 from Last 3 Months or Most Recently Relevant to Health Maintenance Results * Imaging Lumbar/Caudal Epidural Steroid INJ ([id number]) (02/20/2025 10:57 AM CDT) Narrative [employer] - 02/20/2025 10:57 AM CDT The images from this study are not interpreted by Radiology. Please refer to the physician's procedure / OR operative note. us Barb Hayward NP IMG PAIN MGMT PROCEDURES Fin al Result RAD[facility] * Colonoscopy (04/25/2024 9:38 AM CDT) Anatomical Region Laterality Modality Other Narrative Procedure Note Justin Rodriguez MD - 04/25/2024 9:38 AM CDT [facility] Patient Name: Tonie Ball Procedure Date: 04/25/2024 9:38 AM Date of : 1965 Admit Type: Outpatient Age: 58 Gender: Female Attending MD: Justin Rodriguez M.D. Room: [facility] ENDOSCOPY ROOM 1 Note Status: Finalized Patient Profile: This is a 58 year old female. h/o polyps. no family h/o colon cancer Procedure: Colonoscopy Indications: High risk colon cancer surveillance: Personalhistory of colonic polyps, Last colonoscopy: July2017 Referring MD: Roxane Holcomb M.D. Providers: Justin Rodriguez M.D. Impression: - One 12 mm polyp in the distal rectum, removedwith a hot snare. Resected and retrieved. Clip (MR conditional) was placed. Clip media job titles: [employer]. Recommendation: - Await pathology results. - Repeat colonoscopy in 3 years for surveillance. - Continue present medications. Medicines: Monitored Anesthesia Care Complications: No immediate complications. Estimated Blood Loss: Estimated blood loss: none. Procedure: Pre-Anesthesia Assessment: - Prior to the procedure, a History and Physicalwas performed, and patient medications and allergieswere reviewed. The patient's tolerance of previous anesthesia was also reviewed. The risks andbenefits of the procedure and the sedation options and risks were discussed with the patient. All questions were answered, and informed consent was obtained. Prior Anticoagulants: The patient has taken noanticoagulant or antiplatelet agents. ASA Grade Assessment: Per anesthesia note and evaluation. After reviewing the risks and benefits, the patient was deemed in satisfactory condition to undergo the procedure. - Prior to the procedure, a History and Physicalwas performed, and patient medications and allergieswere reviewed. The patient's tolerance of previous anesthesia was also reviewed. The risks andbenefits of the procedure and the sedation options and risks were discussed with the patient. All questions were answered, and informed consent was obtained. Prior Anticoagulants: The patient has taken noanticoagulant or antiplatelet agents. ASA Grade Assessment: Per anesthesia note and evaluation. After reviewing the risks and benefits, the patient was deemed in satisfactory condition to undergo the procedure. The benefits, risks and alternatives of theprocedure and sedation were discussed and informed consentwas obtained. All questions were answered. Please referto the signed informed consent document in the medical record. The bowel preparation used was Miralax and bisacodyl tablets via split dose instruction. The scope was passed under direct vision. The Pediatric Colonoscope PCF-H190L [id number] was introducedthrough the anus and advanced to the the cecum, identifiedby appendiceal orifice and ileocecal valve. Bowel prep was administered using a split dose. Findings: The perianal and digital rectal examinations were normal. The cecum appeared normal. The sigmoid colon, descending colon, transverse colon and ascending colon appeared normal. A 12 mm polyp was found in the distal rectum. The polyp was semi-sessile. The polyp was removed with a hot snare. Resection and retrieval were complete. To prevent bleeding after the polypectomy,one hemostatic clip was successfully placed (MR conditional). Clip media job titles: [employer]. There was no bleeding at the end ofthe procedure. Retroflexion in the rectum was unremarkable. Electronically signed by Justin Rodriguez M.D. Justin Rodriguez M.D. 04/25/2024 11:51:21 AM Number of Addenda: 0 Note Initiated On: 04/25/2024 9:38 AM Procedure Code(s): --- Professional --- 44735, Colonoscopy, flexible; with removal of tumor(s), polyp(s), or other lesion(s) by snare technique Diagnosis Code(s): --- Professional --- Z86.010, Personal history of colonic polyps D12.8, Benign neoplasm of rectum CPT copyright 2020 [employer]. All rights reserved. The codes documented in this report are preliminary and upon foundry engineer reviewmay be revised to meet current compliance requirements. Recognized by the [employer] for promoting quality in endoscopy us Justin Rodriguez MD ENDOSCOPY PROCEDURES Final Result * CT Lung Cancer Screening (04/23/2024 4:56 PM CDT) Anatomical Region Laterality Modality Chest N/A Computed Tomogra phy 04/24/2024 8:16 AM CDT Narrative 04/24/2024 8:24 AM CDT EXAM DESCRIPTION: CT LUNG CANCER SCREENING REASON FOR STUDY: Screening CT of the chest in a current smoker with a 22.5 pack year smoking history. Additional history: None. TECHNIQUE: Low dose CT scan of the chest was performed without intravenous contrast using helical scanning technique. The exam extends from the lung apices through the lung bases. Automatic exposure control was used as a dose optimization technique. NOTE: This study was performed for the specific purposes of lung cancer screening and is not an alternative to diagnostic chest CT. RADIATION DOSE: CT dose index volume (CTDIvol) = 2.7 mGy COMPARISON: CT abdomen and pelvis 10/12/2021 FINDINGS: SMOKING RELATED LUNG DISEASE: There is minimal emphysema. There are tiny ground-glass centrilobular nodules present, as can be seen in the setting of respiratory bronchiolitis in current smokers. There is diffuse bronchial wall thickening noted as can be seen with chronic bronchitis. LUNG NODULES: Granulomas are present, the largest is in the anterior right lower lobe. There are a few scattered tiny bilateral pulmonary nodules present. For instance a 2 mm nodule within the periphery of the right middle lobe laterally on image number 194. No suspicious nodule. CORONARY ARTERY CALCIFICATION: Present OTHER: No pneumonic consolidation. There is subsegmental scarring and atelectasis. There is no pleural effusion. No pneumothorax. The visualized thyroid gland is unremarkable. There is no mediastinal or hilar lymphadenopathy. Postinflammatory calcifications are present. The heart is normal in size without a pericardial effusion. Thoracic aorta is normal in caliber. There is no axillary lymphadenopathy. The chest wall is unremarkable. 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 Atherosclerotic vascular calcifications are present. There is no acute osseous abnormality. Thoracic spondylosis and degenerative disc disease. IMPRESSION: Minimal emphysema. Bronchial wall thickening as can be seen with chronic bronchitis. Scattered tiny bilateral pulmonary nodules. No suspicious nodularity. Coronary artery calcifications. Additional findings as above. Lung-RADS category 2S: Benign appearance or behavior. Finding other than a pulmonary nodule which is potentially clinically significant. Recommendation: Low dose Screening CT of chest in 12 months. THIS IS AN ELECTRONICALLY VERIFIED FINAL REPORT 04/24/2024 8:24 AM - Electronically signed by Ansley Silva M.D. TW: TW Report ID: [id number] Reading Location: [id number] Procedure Note Ansley Silva MD - 04/24/2024 EXAM DESCRIPTION: CT LUNG CANCER SCREENING REASON FOR STUDY: Screening CT of the chest in a current smoker with a 22.5 pack year smoking history. Additional history: None. TECHNIQUE: Low dose CT scan of the chest was performed without intravenous contrast using helical scanning technique. The exam extends from the lung apices through the lung bases. Automatic exposure control was used as adose optimization technique. NOTE: This study was performed for the specific purposes of lung cancer screening and is not an alternative to diagnostic chest CT. RADIATION DOSE: CT dose index volume (CTDIvol) = 2.7 mGy COMPARISON: CT abdomen and pelvis 10/12/2021 FINDINGS: SMOKING RELATED LUNG DISEASE: There is minimal emphysema. There aretiny ground-glass centrilobular nodules present, as can be seen in the settingof respiratory bronchiolitis in current smokers. There is diffuse bronchialwall thickening noted as can be seen with chronic bronchitis. LUNG NODULES: Granulomas are present, the largest is in the anteriorright lower lobe. There are a few scattered tiny bilateral pulmonary nodules present. For instance a 2 mm nodule within the periphery of the right middle lobelaterally on image number 194. No suspicious nodule. CORONARY ARTERY CALCIFICATION: Present OTHER: No pneumonic consolidation. There is subsegmental scarring and atelectasis. There is no pleural effusion. No pneumothorax. Thevisualized thyroid gland is unremarkable. There is no mediastinal or hilar lymphadenopathy. Postinflammatory calcifications are present. The heartis normal in size without a pericardial effusion. Thoracic aorta is normalin caliber. There is no axillary lymphadenopathy. The chest wall is unremarkable. 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 Atherosclerotic vascular calcifications are present.There is no acute osseous abnormality. Thoracic spondylosis and degenerativedisc disease. IMPRESSION: Minimal emphysema. Bronchial wall thickening as can be seen with chronic bronchitis. Scattered tiny bilateral pulmonary nodules. No suspicious nodularity. Coronary artery calcifications. Additional findings as above. Lung-RADS category 2S: Benign appearance or behavior. Finding other thana pulmonary nodule which is potentially clinically significant. Recommendation: Low dose Screening CT of chest in 12 months. THIS IS AN ELECTRONICALLY VERIFIED FINAL REPORT 04/24/2024 8:24 AM - Electronically signed by Ansley Silva M.D. TW: TW Report ID: [id number] Reading Location: [place] [id number] Roxane Holcomb MD [facility] [place] PROCEDURES Final Resul t * Screening Mammogram Bilateral [place] (02/03/2024 9:38 AM CDT) Anatomical Region Laterality Modality Breast Bilateral Mammography 02/03/2024 9:40 AM CDT Impressions 02/03/2024 9:40 AM CDT There is no mammographic evidence of malignancy. A 1 year screening mammogram is recommended. BI-RADS: 1 - Negative. The patient has been or will be contacted. The patient will be entered into a reminder system with a target due date of 1 year for her next mammogram. Electronically signed by: Ansley Giron M.D. Narrative 02/03/2024 9:40 AM CDT EXAMINATION: SCREENING MAMMOGRAM BILATERAL W [place] ORDERING HEALTHCARE PROVIDER: ROXANE HOLCOMB HISTORY: Routine screening mammography. COMPARISON: 05/30/2021, 05/05/2020, 05/08/2018 TECHNIQUE: CC and MLO views of the bilateral breasts were obtained with digital technique using breast tomosynthesis with C view. Computer aided detection was utilized. FINDINGS: DENSITY: The tissue of the bilateral breasts is almost entirely fatty. BREASTS: There are no suspicious masses, suspicious calcifications, or other suspicious findings in either breast. There has been no suspicious interval change. Roxane Holcomb MD [facility] [place]AMMO PROCEDURES Final Re sult * Hepatitis panel, acute (08/06/2020 2:31 PM CDT) Hep A IgM Nonreactive Nonreactive [facility] ([place]ONATHAN) Comment: Interpretive Data: If Hep A IgM Ab is reported as Equivocal, a new sample should be drawn in two weeks for testing. Current interpretive data was last revised on 20. Testing performed by: [facility], [address] [place] [address]., [id number] Hep B core IgM Nonreactive Nonreactive [facility] (JONATHAN) Comment: Interpretive Data If HepB Core IgM Ab is reported as Equivocal, a new sample should be drawn in two weeks for testing. Current interpretive data was last revised on 20. Testing performed by: [facility], [address] [place] [address]., [id number] Hep C Ab Nonreactive Nonreactive [facility] (JONATHAN) Comment: Interpretive Data Nonreactive: Antibodies to HCV not detected. Does NOT exclude the possibility of recent exposure to HCV. Equivocal: Equivocal for HCV antibodies. Supplemental molecular testing will be automatically performed to determine infection status in accordance with current CDC screening recommendations. Reactive: Positive for HCV antibodies. This may represent current or past HCV infection. Supplemental molecular testing will be automatically performed to determine current infection status in accordance with current CDC screening recommendations. Interpretive data was last revised on 2020. Testing performed by: [facility], [address] [place] [address]., [id number] HepBsAg Nonreactive Nonreactive [facility] (JONATHAN) Comment:Testing performed by : [facility], [address] [place] [address]., [id number] Blood specimen (specimen) 08/06/2020 2:31 PM CDT 08/06/2020 9:16 PM CDT Vandana Barbosa NP LAB MICROBIOLOGY - GENERAL OR DERABLES Final Result [facility] (JONATHAN) 1 [facility] Department of Laboratories [place], [place] [id number] * PAP SMEAR WITH HPV (11/04/2017) Pap smear Normal Historical Provider HEALTH MAINTENANCE Final Result from Last 3 Months or Most Recently Relevant to Health Maintenance Insurance [facility]ICE [facility] CHOICE PLUS Advance Directives For more information, please contact: [phone] * Full Code (Latest Code Status on File) Date Activated Date Inactivated Comments 10/29/2024 8:10 AM 10/29/2024 4:30 PM * Full Code Date Activated Date Inactivated Comments 04/25/2024 10:08 AM 04/25/2024 4:40 PM * Full Code Date Activated Date Inactivated Comments 02/17/2021 7:58 AM 02/17/2021 2:08 PM * Full Code Date Activated Date Inactivated Comments 09/10/2020 8:29 AM 09/10/2020 3:25 PM Care Teams Public Address Systems Mechanic Relationship Specialty Start Date End Date Misty Aguirre NP [address] [place] [address] [place] [id number] PCP - General Nurse Practitioner 02/25/25 John Quispe MD Anesthesiologist Anesthesiology 02/05/20 Butch Holloway MD Referring Physician Otolaryngology 05/17/23 Arcenio Mcnamara MD [address] [place] [address] [address] PANDYA [address] [address] Luggage Maker Obstetrics and Gynecology 05/17/23
--- OUTSIDE RECORDS SUMMARY | 2025-03-28 14:25 | XMS_ITS | Referral Summary ---
Author Organization [facility] Address [address] [place] [address] Care Team Providers Care Spudder Name Role Phone John Quispe MD Unavailable [phone] Butch Holloway MD Unavailable Arcenio Mcnamara MD Unavailable [phone] Misty Aguirre NP Primary Care Provider [phone] Encounters Date Type Department Care Team Description 02/20/2025 10:26 AM CDT - 02/20/2025 11:59 PM CDT Hospital Encounter [facility] [address] [place] [address] A, Peter. [address] [place] [address] Norris Mayberry MD Lumbar radiculopathy Discharge Disposition: Discharge to home or self care 02/15/2025 12:06 PM CDT - 02/15/2025 11:59 PM CDT Hospital Encounter [facility] [address] [place] [address] A, [place] [address] Barb Hayward NP Lumbar radiculopathy (Primary Dx); residential (current) use of opiate analgesic; Neuralgia Discharge Disposition: Discharge to home or self care from Last 3 Months Allergies No known active allergies Medications cholecalciferol [...] 12/14/2024 Assessment & Plan (12/14/2024 10:20 AM COTTON ACREAGE MEASURER): Doxycycline twice daily for at least 2 weeks, may continue for 3 weeks Diflucan if needed 64 ounces of caffeine free and soda free fluid daily Consider Allergy and Immunology if no improvement in 6 weeks Mass of tongue 12/03/2024 Assessment & Plan (12/03/2024 11:29 AM COTTON ACREAGE MEASURER): Direct laryngoscopy with Biopsy of Right base [...] 12/03/2024 Assessment & Plan (12/03/2024 11:29 AM COTTON ACREAGE MEASURER): Direct laryngoscopy with Biopsy of Right base [...] sinus surgery with Dr. Holloway ENT at [facility] on 06/14/23. Assessment & Plan (03/16/2023 [...] 11/11/2022 Assessment & Plan (11/11/2022 7:51 AM COTTON ACREAGE MEASURER): -patient tested positive - patient was using her albuterol inhaler more often, but is not needing it as frequently now -reports she is feeling better - advised patient to continue wearing mask and quarantining for the next 3 days SOB (shortness of breath) 11/04/2022 Assessment & Plan (11/04/2022 2:56 PM COTTON ACREAGE MEASURER): worsening Patient is at increased risk for [...] 12/22/2021 Assessment & Plan (11/11/2022 7:12 AM COTTON ACREAGE MEASURER): HPI: Condition is stable A&P: Discussed environmental [...] winter Assessment & Plan (12/22/2021 8:23 AM COTTON ACREAGE MEASURER): HPI: Condition is not at/near goal A&P: [...] (11/07/2020): Added automatically from request for surgery [id number] History of Shukla's esophagus 07/28/2020 Overview (07/28/2020): Added automatically from request for surgery [id number] Gastroesophageal reflux disease 07/28/2020 Overview (07/28/2020): Added automatically from request for surgery [id number] Assessment & Plan (05/16/2023 10:35 AM CDT): [...] bone loss and vit B12 deficiency with termite helper use of PPI with pt, would like to remain on medication at this time Assessment & Plan (11/11/2022 7:12 AM COTTON ACREAGE MEASURER): HPI: Condition is stable Continue on current meds Omeprazole 40 mg daily, encouraged healthy diet and exercise Avoid trigger foods including: carbonated beverages, caffeine, spicy, fried foods, tomatoes, cucumbers, mint, and acidic fruits/juices like orange/lemon/grapefruit. Avoid eating/drinking anything for at least 2 hours before bed. Sleep with bed propped. Discussed increased risk of cdif , bone loss and vit B12 deficiency with termite helper use of PPI with pt, would like [...] in your mouth on an rigoberto like Zuppler Hand Measurements: A fist or cupped hand [...] cup. Assessment & Plan (11/11/2022 7:10 AM COTTON ACREAGE MEASURER): HPI: Condition is not at/near goal goal BMI <30 A&P: Healthy, high-protein, lower carbohydrate, lower fat lifestyle and exercise for 150min/week recommended Recommend tracking everything you put in your mouth on an rigoberto like DadaJOE.compal Hand Measurements: A fist or cupped hand [...] in your mouth on an rigoberto like Zuppler Lower carb substitutions: Aldi carries a zero net carb bread [...] in much longer they will become mushy [place] and/or coconut flour instead of regular flour [...] pork rinds For yogurt, try Two Good singaporean yogurt Use Renee for recipe ideas. Type [...] in your mouth on an rigoberto like Zuppler or [employer]) [employer]i carries a zero net carb bread [...] in much longer they will become mushy [place] and/or coconut flour instead of regular flour [...] pork rinds For yogurt, try Two Good singaporean yogurt Use Pinterest for recipe ideas. Type in low carb... Assessment & Plan (12/22/2021 8:03 AM COTTON ACREAGE MEASURER): HPI: Condition is not at/near goal goal BMI <30 A&P: Healthy, high-protein, lower carbohydrate, lower fat lifestyle and exercise for 150min/week recommended We will have pt see Gabi Ríos NP for weight loss program. Substitutions: Recommend tracking everything you put in your mouth on an rigoberto like Zuppler or [employer]) [employer]i carries a zero net carb bread [...] in much longer they will become mushy [place] and/or coconut flour instead of regular flour [...] pork rinds For yogurt, try Two Good singaporean yogurt Use Pinterest for recipe ideas. Type in low carb... Assessment & Plan (11/09/2021 3:52 AM COTTON ACREAGE MEASURER): HPI: Condition is not at/near goal goal BMI <30 A&P: Healthy, high-protein, lower carbohydrate, lower fat lifestyle and exercise for 150min/week recommended Substitutions: Recommend tracking everything you put in your mouth on an rigoberto like Zuppler or [employer]) Aldi carries a zero net carb bread [...] in much longer they will become mushy [place] and/or coconut flour instead of regular flour [...] pork rinds For yogurt, try Two Good singaporean yogurt Use Pinterest for recipe ideas. Type in low carb... Assessment & Plan (06/26/2021 6:58 AM CDT): HPI: Condition is not at/near goal goal BMI <30 A&P: Healthy, high-protein, lower carbohydrate, lower fat lifestyle and exercise for 150min/week recommended Substitutions: Recommend tracking everything you put in your mouth on an rigoberto like Zuppler or [employer] carries a zero net carb bread If [...] in much longer they will become mushy [place] and/or coconut flour instead of regular flour [...] pork rinds For yogurt, try Two Good singaporean yogurt Use Pinterest for recipe ideas. Type in low carb... Prediabetes 06/25/2020 Overview (06/25/2020): Found 06/25/2020 Assessment & Plan (05/16/2023 10:36 AM CDT): -chronic, stable -Discussed/ordered labs -Healthy, high-protein, lower carbohydrate, lower fat lifestyle and exercise for 150min/week recommended Assessment & Plan (11/11/2022 7:10 AM COTTON ACREAGE MEASURER): HPI: Condition is stable A&P: Discussed/ordered labs, [...] evaluated Assessment & Plan (11/11/2022 7:13 AM COTTON ACREAGE MEASURER): HPI: Condition is stable A&P: Discussed/ordered labs, [...] office. Assessment & Plan (11/11/2022 7:50 AM COTTON ACREAGE MEASURER): HPI: Condition is stable Patient tested positive for COVID on 11/04/2022. States she was using her albuterol inhaler more often, but is not needing as much now. A&P: Discussed/ordered labs, encouraged healthy, low carbohydrate lifestyle and at least 150min/week of exercise, continue on albuterol inhaler as needed Assessment & Plan (12/22/2021 8:22 AM COTTON ACREAGE MEASURER): HPI: Condition is not at/near goal pt [...] ER. Cervicalgia 04/28/2018 Cervical post-laminectomy syndrome 04/28/2018 director long term care (current) use of opiate analgesic 04/01 Moderate single current epis ode of major depressive disorder 12/08/2017 Assessment & Plan (11/11/2022 7:39 AM COTTON ACREAGE MEASURER): Patient reiterated no suicidal thoughts at this [...] mo Assessment & Plan (12/22/2021 8:14 AM COTTON ACREAGE MEASURER): Patient reiterated no suicidal thoughts at this [...] biofeedback. Assessment & Plan (11/09/2021 9:31 AM COTTON ACREAGE MEASURER): Patient reiterated no suicidal thoughts at this [...] your phone. Examples would be headspace, calm, [id number], Personal Denny. Please work on this every [...] daily Assessment & Plan (11/11/2022 7:39 AM COTTON ACREAGE MEASURER): Patient reiterated no suicidal thoughts at this [...] mo Assessment & Plan (12/22/2021 6:59 AM COTTON ACREAGE MEASURER): Patient reiterated no suicidal thoughts at this [...] biofeedback. Assessment & Plan (11/09/2021 9:31 AM COTTON ACREAGE MEASURER): Patient reiterated no suicidal thoughts at this [...] your phone. Examples would be headspace, calm, [id number], Personal Denny. Please work on this every [...] of cdif and vit B12 deficiency with termite helper use of PPI with pt, would like to remain on medication at this time Smoker 11/16/2017 Overview (11/16/2017): 1/2 - pack per day Assessment & Plan (11/11/2022 7:10 AM COTTON ACREAGE MEASURER): Patient aware of risks of tobacco use [...] daily Assessment & Plan (11/11/2022 7:38 AM COTTON ACREAGE MEASURER): HPI: Condition is stable A&P: Discussed/ordered labs, [...] 11/11/2022 Assessment & Plan (12/22/2021 8:12 AM COTTON ACREAGE MEASURER): Condition is worsening since fall 2 wks [...] prn. She also has an appt with information lead to rule out information lead cause of pain. Pt does have chronic back pain which could be contributing. Diarrhea 07/28/2020 11/11/2022 Assessment & Plan (07/28/2020 3:46 PM CDT): Pt has about 4 episodes of diarrhea daily and all occurring in the morning. She occasionally has another BM but rare. It is always 6 or 7 on [place] stool scale. Dicyclomine TID prn for diarrhea and abdominal pain. Chronic rhinitis 02/05/2020 11/11/2022 Assessment & Plan (11/11/2022 7:12 AM COTTON ACREAGE MEASURER): Assessment & Plan (02/05/2020 11:09 AM CDT): [...] cell carcinoma (BCC) of face 08/02/2018 01/22/2020 [place] eye disease of both eyes 07/19/2018 01/22/2020 [...] (06/05/2018): Added automatically from request for surgery [id number] Mass of finger of left hand 05/25/2018 [...] in much longer they will become mushy [place] and/or coconut flour instead of regular flour [...] 11/16/2017 Overview (11/16/2017): Managed by Dr. Sarabia Immunizations Immunization Administration Dates Next Due Hep [...] 05/10/2022 Pneumococcal Polysaccharide PPV23 10/13/2017 Tdap 06/25/2020 Social History Tobacco Use Types Packs/Day Years [...] on file Legal Sex Female 6:56 PM COTTON ACREAGE MEASURER Gender Identity Not on file Sexual Orientation Straight 06/15/2021 9: 00 AM CDT Last Filed Vital Signs Vital Sign Reading Time Taken Comments Blood Pressure 130/68 02/20/2025 11:00 AM CDT Pulse 68 02/20/2025 11:00 AM CDT Temperature 36.3 C (97.4 F) 02/20/2025 10:33 AM CDT Respiratory Rate 18 02/20/2025 11:00 AM CDT Oxygen Saturation 100% 02/20/2025 11:00 AM CDT Inhaled Oxygen Concentration - - Weight 98.4 kg (217 lb) 12/14/2024 9:55 AM COTTON ACREAGE MEASURER Height 160 cm (5' 2.99) 12/14/2024 9:55 AM COTTON ACREAGE MEASURER Body Mass Index 38.45 12/14/2024 9:55 AM COTTON ACREAGE MEASURER Plan of Treatment Not on file Goals Goal Patient Goal Type Associated Problems Recent Progress Patient-Stated? Author -Pain Behavioral Health On track( 023 3:04 PM CDT) No Emelyn Mills, JANNET Note: Patient will establish a comfort-function goal and identify the pain level that will allow the patient to perform desired activities and achieve an acceptable quality of life. -Pain Behavioral Health On track( 019 3:19 PM COTTON ACREAGE MEASURER) No Emelyn Mills, JANNET Note: Patient will report that the pain management medication regimen achieves comfort-function goal without the occurrence of adverse effects. Medical Devices Implanted Type Area Sales Representatives Device Identifier Shelf Expiration Date Model / Serial / Lot [employer] [id number] Avance 2-3mm 30mm Allograft Multiple Clean Graft Soft Tissue - [id number] Implanted:Qty: 1 on 06/13/2018 by John Matthews III, MD at [facility] [employer] [id number] 02/27/2019 [id number] / / [id number] [employer] [id number] Seprafilm 6x5in Barrier Adhesion Sterile Disposable Latex Free - [id number] Implanted:Qty: 1 on 06/13/2018 by John Matthews III, MD at [facility] [employer] [id number] 08/30/2019 [id number] / / [id number] Procedures Procedure Name Priority Date/Time Associated Diagnosis [...] Results * Imaging Lumbar/Caudal Epidural Steroid INJ (78759) (02/20/2025 10:57 AM CDT) Narrative [facility] - 02/20/2025 10:57 AM CDT The images from this study are not interpreted by Radiology. Please refer to the physician's procedure / OR operative note. us Barb Hayward NP IMG PAIN MGMT PROCEDURES Fin al Result [facility] * Colonoscopy (04/25/2024 9:38 AM CDT) Anatomical Region Laterality Modality Other Narrative Procedure Note Justin Rodriguez MD - 04/25/2024 9:38 AM CDT [facility] Patient Name: Tonie Ball Procedure Date: 04/25/2024 9:38 AM Date of : 1965 Admit Type: Outpatient Age: 58 Gender: Female Attending MD: Justin Rodriguez M.D. Room: [facility] ENDOSCOPY ROOM 1 Note Status: Finalized Patient [...] retrieved. Clip (MR conditional) was placed. Clip salesperson men's furnishings: Dolphin. Recommendation: - Await pathology results. - Repeat [...] under direct vision. The Pediatric Colonoscope [id number]-[id number] was introducedthrough the anus and advanced to [...] clip was successfully placed (MR conditional). Clip salesperson men's furnishings: Dolphin. There was no bleeding at the end ofthe procedure. Retroflexion in the rectum was unremarkable. Electronically signed by Justin Rodriguez M.D. Justin Rodriguez M.D. 04/25/2024 11:51:21 AM Number of Addenda: 0 Note Initiated On: 04/25/2024 9:38 AM Procedure Code(s): --- Professional --- 75599, Colonoscopy, flexible; with removal of tumor(s), polyp(s), or other lesion(s) by snare technique Diagnosis Code(s): --- Professional --- Z86.010, Personal history of colonic polyps D12.8, Benign neoplasm of rectum CPT copyright 2020 [employer]. All rights reserved. The codes documented in this report are preliminary and upon transport assistant reviewmay be revised to meet current compliance requirements. Recognized by the [employer] for promoting quality in endoscopy Justin Rodriguez MD ENDOSCOPY PROCEDURES Final Result [...] Electronically signed by Ansley Silva M.D. TW: BENY Report ID: [id number] Reading Location: [id number] Procedure Note Ansley Silva MD - 04/24/2024 [...] Ansley Silva M.D. TW: TW Report ID: [id number] Reading Location: [place] [address] Roxane Holcomb MD IMG CT PROCEDURES Final Resul t * Screening [...] There has been no suspicious interval change. us Roxane Holcomb MD IMG MAMMO PROCEDURES Final Re sult * Hepatitis panel, acute (08/06/2020 2:31 PM CDT) Hep A IgM Nonreactive Nonreactive [facility] (JONATHAN) Comment: Interpretive Data: If Hep A IgM Ab is reported as Equivocal, a new sample should be drawn in two weeks for testing. Current interpretive data was last revised on 20. Testing performed by: [facility], [address] [place] [address]., [address] Hep B core IgM Nonreactive Nonreactive [facility] (JONATHAN) Comment: Interpretive Data If HepB Core IgM Ab is reported as Equivocal, a new sample should be drawn in two weeks for testing. Current interpretive data was last revised on 20. Testing performed by: [facility], [address] [place] [address], [place]., [address] Hep C Ab Nonreactive Nonreactive [facility] (JONATHAN) Comment: Interpretive Data Nonreactive: Antibodies to [...] last revised on 2020. Testing performed by: [facility], [address] [place] [address], [place]., [address] HepBsAg Nonreactive Nonreactive [facility] (JONATHAN) Comment:Testing performed by : [facility], [address] [place] [address], [place]., [address] Blood specimen (specimen) 08/06/2020 2:31 PM CDT 08/06/2020 9:16 PM CDT us Vandana Barbosa NP LAB MICROBIOLOGY - GENERAL OR DERABLES Final Result [facility] ([place]) 1 [facility] Department of Laboratories [place] [id number] * PAP SMEAR WITH HPV (11/04/2017) Pap smear Normal us Historical Provider HEALTH MAINTENANCE Final Result from Last 3 Months or Most Recently Relevant to Health Maintenance Insurance [facility] HMO/PPO Address: [facility] [place] [facility] [id number] [place] [id number] [facility] HMO/PPO Address: [address] [address] [place] [phone] [place] [address] HMO [facility] HMO/PPO Address: [facility] [place] [facility] [id number] [place] [address] [facility] HMO/PPO Address: [address] [place] [phone] Advance Directives For more information, please contact: [phone] * Full Code (Latest Code Status on File) Date Activated Date Inactivated Comments 10/29/2024 8:10 AM 10/29/2024 4:30 PM * Full Code Date Activated Date Inactivated Comments 04/25/2024 10:08 AM 04/25/2024 4:40 PM * Full Code Date Activated Date Inactivated Comments 02/17/2021 7:58 AM 02/17/2021 2:08 PM * Full Code Date Activated Date Inactivated Comments 09/10/2020 8:29 AM 09/10/2020 3:25 PM Care Teams Spudder Relationship Specialty Start Date End Date Misty Aguirre NP [address] [place] [address] PCP - General Nurse Practitioner 02/25/25 John Quispe MD Anesthesiologist Anesthesiology 02/05/20 Butch Holloway MD Referring Physician Otolaryngology 05/17/23 Arcenio Mcnamara MD [address] [place] [id number] Continuous Mining Machine Operator Obstetrics and Gynecology 05/17/23
--- OUTSIDE RECORDS SUMMARY | 2025-03-28 14:27 | XMS_ITS | Continuity of Care Document ---
Author Organization [facility] [place] Address [address] [address] Phone Care Team Providers Care Mixing Machine Tender Cork Gasket Name Role Phone Larry Huerta MD Unavailable [...] Diagnoses Date Provider Providers Copied on Encounter [facility] [place], [address] [place], [place], [id number], [place] tel:[phone] [facility] Unspecified visual disturbanceUnspecif ied disorder of refraction and accommodationOther vitreous opacitiesPinguecula DermatochalasisTear film insufficiency, unspecified 4 Deanna Juarez. [address] DAVALOS [facility], [place], [place], [id number] , [place]. [phone] [facility] [place], [address] [facility], [place], [place], [id number], [place] tel:[phone] [facility] DermatochalasisPing ueculaOther vitreous opacitiesUnspecifie d disorder of refraction and accommodationUnspec ified visual disturbance 2 Deanna Juarez. [address] ANOOP Mendoza [facility], [place], [place], [id number] , [place]. tel:[phone] Family History Family Member Type Diagnosis Age At Onset Sister Problem (finding) diabetes melli tus in first degree relative Mother Problem (finding) diabetes melli tus in first degree relative Mother Problem (finding) Glaucoma ? Payers Payer name Insurance type Covered democrat ID Authoriza tion(s) No Information Social History [...]
--- NOTE | 2025-03-28 14:36 | ED_ITS ---
HPI - Extremity Injury (Upper) General Chief Complaint: Extremity Injury, Upper Stated Complaint: right shoulder, neck, and rib pain Source: patient Mode of arrival: ambulatory Limitations: no limitations History of Present Illness HPI narrative: 59 y/o female presented for c/o pain in multiple sites for one week following a fall. Says she tripped while walking into her house, breaking the toenail, and then landing on 'knees, pelvis, ribs, and chest, and struck face on the cabinet.' Endorses pain to bilateral ribs, neck and headache with nausea and vomiting. Also reports she feels the right shoulder has 'dropped.' Denies numbness, tingling weakness of the upper extremities. Taking norco for chronic back pain. Hx gastric sleeve. Rates head pain 08/09, other sites 03/09. Related Data Home Medications ?Medication ?Instructions ?Recorded ?Confirmed ?Last Taken ?Type omeprazole 40 mg capsule,delayed 40 mg PO DAILY 09/04/20 01/26/24 06/14/23 07:45 History release hydrocodone 10 mg-acetaminophen 1 tablet PO QID PRN Pain 03/24/21 01/26/24 06/13/23 History 325 mg tablet gabapentin 300 mg capsule 300 mg PO QHS 01/26/24 01/26/24 Unknown History famotidine 20 mg tablet mg 03/28/25 Unknown History fezolinetant 45 mg tablet (Veozah) mg PO 03/28/25 Unknown History fluorometholone 0.1 % eye drp 03/28/25 Unknown History drops,suspension fluoxetine 40 mg capsule mg 03/28/25 Unknown History Allergies Allergy/AdvReac Type Severity Reaction Status Date / Time cat dander Allergy Intermediate SOB, NASAL Verified 03/28/25 14:42 CONGESTION, SNEEZING horse dander Allergy Intermediate SOB, NASAL Verified 03/28/25 14:42 CONGESTION, SNEEZING Review of Systems Review of Systems: per HPI All systems reviewed & are unremarkable except as noted in HPI and below PMFSH Past Medical History Medical History Abdominal pain Allergy-induced asthma Anxiety Arthritis Asthma Shukla's esophagus Bursitis of left foot Chronic back pain Claustrophobia Cough variant asthma Depression Obesity Peroneal tendinitis of left lower leg Skin cancer Surgical History Surgical History H/O shoulder surgery [place] [address] Brantley History of carpal tunnel release right in [address] Brantley History of endometrial ablation History of fusion of cervical spine [place] [address] Craig History of thumb surgery left History of tubal ligation History of weight loss surgery gastric sleve [place] [address] Lynn Hx of cholecystectomy 1994 Hx of tonsillectomy Family History Family History Father Acute myocardial infarction Hypertension Heart disease Mother Cerebrovascular accident Diabetes mellitus Hypertension Sibling Cerebrovascular accident Grandparent Diabetes mellitus Hypertension Cerebrovascular accident Other Arthritis HLD (hyperlipidemia) Social History Social History Smoking packs per day: 0.5 Smoking cigarettes per day: 10.0 Years smoked: 40 Smoking pack-years: 20.00 Smoking status: Current every day smoker Tobacco type: cigarettes Second hand tobacco smoke exposure: Yes Alcohol intake: current Substance use: never Substance use type: does not use Lack of Transportation: No Lack of Food: Never True Current Housing: I Have Housing Concerned About Future Housing: No Difficulty Paying Gas/Electric Bills: No Difficulty Paying for Meds: No Currently Unemployed: No Education: Trade/Vocational Certificate Difficulty w/ Childcare or Family Care: No Living arrangements: with family 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 Please see nursing chart for further information. There is no relevant family history pertinent to the presenting complaint Exam Narrative: GENERAL: Well-appearing CHEST: Speaks in full sentences. No respiratory distress. Audible wheezing when talking. Lungs diminished. HEART: Regular rate and rhythm. Normal and equal peripheral pulses. NECK: normal ROM, no vpt. EXTREMITIES: BUE's normal/baseline strength and sensation, equal range of motion at shoulders, but endorses pain with movement. Endorses generalized tenderness to the right shoulder and trapezius with palpation. No edema or ecchymosis, No open wounds, or obvious deformity; alignment normal, pulse palpable and equal bilaterally, skin warm, dry, pink. Capillary refill less than 3 seconds. ABD: large soft, tender to epigastric and bilateral lower quadrants. SKIN: Warm, dry NEURO: Alert and oriented x3. PSYCH: Flat affect Course Course Emergency Course: Patient is aware of diagnosis, understands and agrees to treatment plan. Anticipatory guidance given. Patient agrees to follow-up as directed and is aware of reasons to seek care at the emergency department. Portions of this record may have been created with voice recognition software Level of Care: Express Care Visit Vital Signs Vital signs: Vital Signs Temperature 97.9 F 03/28/25 14:23 Pulse Rate 85 03/28/25 14:23 Respiratory Rate 16 03/28/25 14:23 Blood Pressure 134/69 03/28/25 14:23 Pulse Oximetry 96 03/28/25 14:23 Oxygen Delivery Room Air 03/28/25 14:23 Temperature 97.9 F 03/28/25 14:23 Pulse Rate 85 03/28/25 14:23 Respiratory Rate 16 03/28/25 14:23 Blood Pressure 134/69 03/28/25 14:23 Pulse Oximetry 96 03/28/25 14:23 Oxygen Delivery Room Air 03/28/25 14:23 Reviewed MDM - Extremity Injury (Upper) MDM Narrative Medical decision making narrative: Pt presented with c/o pain to multiple sites for one week following a fall at home. Also tender to epigastric and lower abdomen with palpation and vomiting which she r/t headache. She is advised imaging for head and abdomen would be indicated to determine etiology and offered ER at this time. Pt declines ER. At this time she is agreeable to xray of ribs and right shoulder only. Results of imaging reviewed with pt. Pt says she will go home and take a muscle relaxer, and if no improvement in head pain tomorrow she will go to the ER. Discussed physical exam findings. Advised supportive measures and signs/symptoms to go to the ER. Pt is appropriate for outpt treatment and f/u with pcp. Differential Diagnosis Differential diagnosis: Likely other (Shoulder dislocation, clavicle fracture, humerus fracture, scapular fracture, acromioclavicular joint injury, rotator cuff tear, bicep tendon rupture, tricep tendon rupture, cervical radiculopathy, rib fracture, rib contusion, abdominal pain gastritis, GERD, PUD, gastritis, pancreatitis, gallbladder) Imaging Data Radiologist's impression: Patient: Tonie Ball : 1965 MR#: [id number] Age: 59 Acct:[id number] Loc: EXP ADM Date: 03/28/25Attending Dr: Ordering Physician: Zuly Bunch APRN Date of Service: 03/28/25 Procedure(s): XR shoulder RT min 2V Accession Number(s): [id number] cc: JOSE,MISTY CUMMINS; Zuly Bunch APRN~ XR shoulder RT min 2V Ordering provider: Zuly Bunch APRN History: . pain one week fall . Comparison: None. FINDINGS: BONES: No acute fracture or dislocation. Degenerative changes seen in the area of the greater tuberosity. JOINT SPACES: The acromioclavicular joint shows mild osteoarthritic changes.. The glenohumeral joint is normal. SOFT TISSUES: Normal. IMPRESSION: No acute osseous abnormality right shoulder. Mild osteoarthritic changes. Patient: Tonie Ball : 1965 MR#: [id number] Age: 59 Acct:[id number] Loc: ADM Date: 03/28/25Attending Dr: Ordering Physician: Zuly Bunch APRN Date of Service: 03/28/25 Procedure(s): XR ribs BI w PA/LAT CXR Accession Number(s): [id number] cc: OJSE,MISTY CUMMINS; Zuly Bunch APRN~ EXAMINATION: XR ribs BI 3V w CXR 2V DATE: 03/28/2025 15:30 INDICATION: Rib pain post fall TECHNIQUE: PA and lateral views of the chest and 3 views of the left ribs and 3 views of the right ribs were obtained. COMPARISON: None FINDINGS: No rib fractures identified. Calcified nodules at the right lung base consistent with old granulomatous disease. No other airspace opacities, pulmonary edema, pleural effusion or pneumothorax. Cardiomediastinal silhouette is normal. Coarse cervical anterior spinal fusion with anterior plate and screw fixation. Mild to moderate thoracic spondylosis with bridging osteophytes at multiple levels consistent with diffuse idiopathic skeletal hyperostosis (DISH). Cholecystectomy clips in right upper quadrant. IMPRESSION: 1. No rib fracture or acute cardiopulmonary disease. Discharge Plan Discharge Clinical Impression: Pain of multiple sites Patient Disposition: Home Condition: Stable Instructions: Musculoskeletal Pain (ED) Additional Instructions: Rest. Avoid pushing, pulling, lifting or anything that worsens the symptoms Tylenol 1000mg every 8 hours as needed (not to exceed 4000mg of acetaminophen from all sources) Alternate ice/heat to the site. Lidocaine or salon pas pain patch or use pain cream like icy/hot or biofreeze. Follow up with your primary care provider as needed in 1 week Go to the ER for worsening symptoms or concerns Patient Language: [place] Prescriptions: No Action hydrocodone-acetaminophen 10-325 mg tablet 1 tablet PO QID PRN (Reason: Pain) omeprazole 40 mg Capsule,Delayed Release(Dr/Ec) 40 mg PO DAILY gabapentin 300 mg capsule 300 mg PO QHS fluoxetine 40 mg capsule famotidine 20 mg tablet fluorometholone 0.1 % drops,suspension Veozah 45 mg tablet PO Follow-up/Referrals: Carla,Misty Valdez APN [Primary Care Provider] - Time of Disposition: 16:11
== END 2025-03-28 16:17 | disposition home or self-care (01) ==
PROVIDERS: Emergency Provider Nurse Practitioner Family; PCP Nurse Practitioner Family
DX: R07.89 Other chest pain (principal); M25.511 Pain in right shoulder; M54.2 Cervicalgia; R10.13 Epigastric pain; R10.31 Right lower quadrant pain; R10.32 Left lower quadrant pain; F17.210 Nicotine dependence, cigarettes, uncomplicated; J45.909 Unspecified asthma, uncomplicated; M19.90 Unspecified osteoarthritis, unspecified site; K22.70 Barrett's esophagus without dysplasia; E66.9 Obesity, unspecified; Z68.41 Body mass index [BMI] 40.0-44.9, adult; Z98.84 Bariatric surgery status; Z85.828 Personal history of other malignant neoplasm of skin
CPT/HCPCS: 71046; 71110; 73030; 99214; G0463